=== PATIENT | male | born 1975 | race Caucasian/White ===

== ENCOUNTER 2020-03-24 12:53 | Inpatient (IN) | payer MEDICARE, MEDICAID ==
[~2020-03-24] VITALS: Ht 167.6 cm; Wt 84.5 kg
[2020-03-24 13:43] LABS: BASO # 0.1 x10^3/uL (0.0-0.2); BASO % 1 % (0-3); EOS # 0.1 x10^3/uL (0.0-0.7); EOS % 2 % (0-3); HEMATOCRIT 28.9 % (39.0-53.0); HEMOGLOBIN 9.4 g/dL (13.0-17.5); LYMPH # 0.5 x10^3/uL (1.0-4.8); LYMPH % 6 % (24-48); MEAN CORPUSCULAR HEMOGLOBIN 28 pg (25-35); MEAN CORPUSCULAR HGB CONC 33 g/dL (31-37); MEAN CORPUSCULAR VOLUME 86 fL (79-100); MONO # 0.6 x10^3/uL (0.0-1.1); MONO % 7 % (0-9); NEUT # 6.8 x10^3/uL (1.8-7.7); NEUT % 85 % (31-73); PLATELET COUNT 141 x10^3/uL (140-400); RED BLOOD COUNT 3.37 x10^6/uL (4.30-5.70); RED CELL DISTRIBUTION WIDTH 18.8 % (11.5-14.5)
--- NOTE | 2020-03-24 14:06 | EKG ---
[facility] [address] [place] [address] Test Date: 2020-03-24 Test Time: 12:58:49 Pat Name: SALLY ROPER Department: Room: Gender: M [employer]: : 1975 Requested By: CHARANJIT LANDERS Order Number: [id number] Reading MD: Measurements Intervals [place] Rate: 66 P: -41 [place]: 146 QRS: -43 QRSD: 104 T: 84 QT: 426 QTc: 448 Interpretive Statements SINUS RHYTHM ABNORMAL LEFT AXIS DEVIATION R-S TRANSITION ZONE IN V LEADS DISPLACED TO THE LEFT LEFT ANTERIOR FASCICULAR BLOCK T ABNORMALITY IN HIGH LATERAL LEADS ABNORMAL ECG RI6.02 No previous ECG available for comparison
--- NOTE | 2020-03-24 14:45 | RAD ---
PORTABLE CHEST 1V Clinical indications: Dyspnea. COMPARISON: None available. Findings: Mild bilateral perihilar interstitial pulmonary edema or bronchitis is seen. No Pool B line's or lung consolidation or pleural effusion or pneumothorax is seen. The heart size is enlarged. Mediastinum and pulmonary vasculature are unremarkable. IMPRESSION: Bilateral interstitial pulmonary edema or bronchitis. Cardiomegaly. Electronically signed by: Richard Rangel MD (03/24/2020 2:42 PM) [id number]
[2020-03-24 15:22] LABS: ALBUMIN/GLOBULIN RATIO 0.8 (1.0-1.7); CALCIUM 8.1 mg/dL (8.5-10.1); CREATININE 18.8 mg/dL (0.7-1.3); GFR 2.7; MAGNESIUM 2.4 mg/dL (1.8-2.4); TOTAL BILIRUBIN 0.5 mg/dL (0.2-1.0)
[2020-03-24 15:27] LABS: POTASSIUM 6.9 mmol/L (3.5-5.1)
[2020-03-24] MEDS ORDERED: DEXTROSE 50% 25 GM / 50ML DISP.SYRIN. IV ONE (15:30)
[2020-03-24] MEDS ORDERED: SODIUM BICARB ADULT 8.4% 50 MEQ/50 ML DISP.SYRIN. IV ONE (15:30)
[2020-03-24] MEDS ORDERED: CALCIUM GLUCONATE 1,000 MG/10 ML VIAL. IVP ONE (15:30)
[2020-03-24] MEDS ORDERED: INSULIN REGULAR 100 UNIT/ML 3ML VIAL. IV ONE (15:30)
--- NOTE | 2020-03-24 15:33 | PHYS DOC ---
Past Medical History Past Medical History: Anxiety, Asthma, CHF, COPD, Hypertension, Renal Disease, Renal Failure, Other Additional Past Medical Histor: DIALYSIS M/W/F Past Surgical History: Other Additional Past Surgical Histo: LEFT UPPER EXTREMITY FISTULA Smoking Status: Current Every Day Smoker Alcohol Use: None Drug Use: None General Adult EDM: Chief Complaint: LOWER EXTREMITY SWELLING HPI: HPI: 44-year-old male past medical history significant for ESRD (MWF), asthma, CHF, COPD and hypertension, presents the ED with complaints of progressive/slowly worsening shortness of breath (worse when lying flat) and lower extremity swelling. Patient states he is missed dialysis for the past week. Usually goes to but no longer wants to pursue medical care there. Has no active chest pain/pressure/tightness/tearing sensation. Review of Systems: Review of Systems: Constitutional: Denies fever or chills. [] Eyes: Denies change in visual acuity. [] HENT: Denies nasal congestion or sore throat. [] Respiratory: Denies cough Cardiovascular: Denies chest pain GI: Denies abdominal pain, nausea, vomiting, bloody stools or diarrhea. [] : Denies dysuria, anuria Musculoskeletal: Denies back pain or joint pain. [] Integument: Denies rash. [] Neurologic: Denies headache, focal weakness or sensory changes. [] Endocrine: Denies polyuria or polydipsia. [] Lymphatic: Denies swollen glands. [] Psychiatric: Denies depression or anxiety. [] Heart Score: Risk Factors: Risk Factors: DM, Current or recent (<one month) smoker, HTN, HLP, family history of CAD, obesity. Risk Scores: Score 0 - 3: 2.5% MACE over next 6 weeks - Discharge Home Score 4 - 6: 20.3% MACE over next 6 weeks - Admit for Clinical Observation Score 7 - 10: 72.7% MACE over next 6 weeks - Early Invasive Strategies Current Medications: Current Medications Medications (Trade) Dose Ordered Sig/Michel Start Time Stop Time Status Last Admin Dose Admin Calcium Gluconate (Calcium Gluconate) 1,000 mg 1X ONCE 03/24/20 15:30 03/24/20 15:31 UNV Dextrose (Dextrose 50%-Water Syringe) 25 gm 1X ONCE 03/24/20 15:30 03/24/20 15:31 UNV Insulin Human Regular (HumuLIN R VIAL) 5 unit 1X ONCE 03/24/20 15:30 03/24/20 15:31 UNV Sodium Bicarbonate (Sodium Bicarb Adult 8.4% Syr) 50 meq 1X ONCE 03/24/20 15:30 03/24/20 15:31 UNV Allergies: Allergies: Allergies Coded Allergies Type Severity Reaction Last Updated Verified ibuprofen Allergy Intermediate "Hives" 10/07/15 No Physical Exam: PE: Constitutional: Well developed, well nourished, no acute distress, non-toxic appearance, calm on cell phonr HENT: Normocephalic, atraumatic, bilateral external ears normal, oropharynx moist, no oral exudates, nose normal. [] Eyes: EOMI, conjunctiva normal, no discharge. [] Neck: Normal range of motion, no tenderness, supple, no stridor. [] Cardiovascular:Heart rate regular rhythm, no murmur [] Lungs & Thorax: Bilateral breath sounds clear to auscultation, being in full sentences, no respiratory distress Abdomen: Bowel sounds normal, soft, no tenderness, no masses, no pulsatile masses. [] Skin: Warm, dry, no erythema, no rash. [] Back: No tenderness, Extremities: No tenderness, no cyanosis, no clubbing, ROM intact, +equal bl le edema Neurologic: Alert and oriented X 3, normal motor function, normal sensory function, no focal deficits noted. [] Psychologic: Affect normal, judgement normal, mood normal. [] Current Patient Data: Labs: Laboratory Tests Test 03/24/20 13:22 03/24/20 15:00 White Blood Count 8.0 x10^3/uL (4.0-11.0) Red Blood Count 3.37 x10^6/uL (4.30-5.70) L Hemoglobin 9.4 g/dL (13.0-17.5) L Hematocrit 28.9 % (39.0-53.0) L Mean Corpuscular Volume 86 fL (79-100) Mean Corpuscular Hemoglobin 28 pg (25-35) Mean Corpuscular Hemoglobin Concent 33 g/dL (31-37) Red Cell Distribution Width 18.8 % (11.5-14.5) H Platelet Count 141 x10^3/uL (140-400) Neutrophils (%) (Auto) 85 % (31-73) H Lymphocytes (%) (Auto) 6 % (24-48) L Monocytes (%) (Auto) 7 % (0-9) Eosinophils (%) (Auto) 2 % (0-3) Basophils (%) (Auto) 1 % (0-3) Neutrophils # (Auto) 6.8 x10^3/uL (1.8-7.7) Lymphocytes # (Auto) 0.5 x10^3/uL (1.0-4.8) L Monocytes # (Auto) 0.6 x10^3/uL (0.0-1.1) Eosinophils # (Auto) 0.1 x10^3/uL (0.0-0.7) Basophils # (Auto) 0.1 x10^3/uL (0.0-0.2) Sodium Level 133 mmol/L (136-145) L Potassium Level 6.9 mmol/L (3.5-5.1) *H Chloride Level 96 mmol/L (98-107) L Carbon Dioxide Level 18 mmol/L (21-32) L Anion Gap 19 (6-14) H Blood Urea Nitrogen 128 mg/dL (8-26) H Creatinine 18.8 mg/dL (0.7-1.3) H Estimated GFR (Cockcroft-Gault) 2.7 BUN/Creatinine Ratio 7 (6-20) Glucose Level 108 mg/dL (70-99) H Calcium Level 8.1 mg/dL (8.5-10.1) L Magnesium Level 2.4 mg/dL (1.8-2.4) Total Bilirubin 0.5 mg/dL (0.2-1.0) Aspartate Amino Transferase (AST) 11 U/L (15-37) L Alanine Aminotransferase (ALT) 10 U/L (16-63) L Alkaline Phosphatase 75 U/L (46-116) Creatine Kinase 160 U/L (39-308) Troponin I Quantitative 0.173 ng/mL (0.000-0.055) HP-Cqm-X-Type Natriuretic Peptide > 53358 pg/mL (0-124) H Total Protein 7.0 g/dL (6.4-8.2) Albumin 3.0 g/dL (3.4-5.0) L Albumin/Globulin Ratio 0.8 (1.0-1.7) L Laboratory Tests 03/24/20 13:22 Laboratory Tests 03/24/20 15:00 Vital Signs: Vital Signs Date Time Temp Pulse Resp B/P (MAP) Pulse Ox O2 Delivery O2 Flow Rate FiO2 03/24/20 12:53 98.2 66 22 190/88 (122) 98 Nasal Cannula 2.0 98.2 EKG: EKG: Sinus rhythm at 66 bpm, left axis deviation, QTC 448, T wave inversion aVL, no S T elevations or ST depressions Radiology/Procedures: Radiology/Procedures: []IMAGING REPORT Signed PATIENT: SALLY ROPER ACCOUNT: [id number] : 1975 LOCATION: ER AGE: 44 SEX: M EXAM STATUS: REG ER ORD. PHYSICIAN: MICHELLE LANDERS DO REASON: dyspnea PROCEDURE: PORTABLE CHEST 1V PORTABLE CHEST 1V Clinical indications: Dyspnea. COMPARISON: None available. Findings: Mild bilateral perihilar interstitial pulmonary edema or bronchitis is seen. No Pool B line's or lung consolidation or pleural effusion or pneumothorax is seen. The heart size is enlarged. Mediastinum and pulmonary vasculature are unremarkable. IMPRESSION: Bilateral interstitial pulmonary edema or bronchitis. Cardiomegaly. Electronically signed by: Mateus Rangel MD (03/24/2020 2:42 PM) [id number] DICTATED and SIGNED BY: MATEUS RANGEL MD DATE: 03/24/20 1442 Course & Med Decision Making: Course & Med Decision Making Pertinent Labs and Imaging studies reviewed. (See chart for details) Concern for hyperkalemia in the setting of interstitial pulmonary edema, fluid overload. Treatment started in the ED. Has elevated troponin but no active chest pain, no prior for comparison. Will admit for nephrology and cardiology consultation. Patient stable at time of admission and agrees with this plan. I have spoken with the patient and/or caregivers. I have explained the patient's condition, diagnosis and treatment plan based on the information available to me at this time. I have answered the patient's and/or caregivers questions and answered any concerns. The patient and/or caregivers have as good an understanding of the patient's diagnosis, condition and treatment plan as can be expected at this point. The patient has been stabilized within the capability of the emergency department. The patient will be transported for further care and management or will be moved to an observation or inpatient service. I have communicated with the staff or medical practitioner taking over this patient's care. Critical Care: Authorized and Performed by: Michelle Landers DO Total critical care time: approximately 30 minutes Due to a high probability of clinically significant, life threatening deterioration, the patient required my highest level of preparedness to intervene emergently and I personally spent this critical care time directly and personally managing the patient. This critical care time included obtaining a history; examining the patient; pulse oximetry; ventilator management if necessary; ordering and review of studies; arranging urgent treatment with development of a management plan; evaluation of patient's response to treatment; frequent reassessment; discussion with patient/family; and, discussions with other providers. This critical care time was performed to assess and manage the high probability of imminent, life-threatening deterioration that could result in multi-organ failure. It was exclusive of separately billable procedures and treating other patients and teaching time. Please see MDM section and the rest of the note for further information on patient assessment and treatment. Dragon Disclaimer: Dragon Disclaimer: This electronic medical record was generated, in whole or in part, using a voice recognition dictation system. Departure Departure Impression: Primary Impression: Hyperkalemia Additional Impressions: Cardiomegaly ESRD (end stage renal disease) Fluid overload Elevated troponin Disposition: ADMITTED INPATIENT Admitting Physician: ENRICO Hamilton) Condition: CRITICAL Referrals: NO PCP (PCP) Justicifation of Admission Dx: Justifications for Admission: Justification of Admission Dx: Yes Chronic Renal Failure: Electrolyte Abnormality MICHELLE LANDERS DO Mar 24, 2020 15:33
--- NOTE | 2020-03-24 18:11 | PDOC1 ---
History and Physical Date of Admission Date of Admission DATE: 03/24/20 TIME: 18:10 Identification/Chief Complaint Chief Complaint Leg pain Source Source: Patient History of Present Illness History of Present Illness Mr Barroso is a 44 yo M w/ PMHx ESRD (MWF), asthma, CHF, COPD and hypertension, smoker who presents the ED with complaints of shortness of breath and lower extremity swelling and some left left pain. He notes he missed dialysis for "too long" states his transportation doesn't pick him up. Usually goes to but no longer wants to pursue medical care there. Systolic BP in 200s CXR with fluid overload. Labs significant for WBC 8, Hb 9.4, Platelets 141, Na 133, K 6.9, BUN 128, CR 18.8, glucose 108, Albumin 3, Trop 0.173, BNP > 35K EKG - Sinus rhythm at 66 bpm, left axis deviation, QTC 448, T wave inversion aVL, no ST elevations or ST depressions Given insulin, D50, albuterol, sodium bicarbonate for hyperkalemia, and admitted to ICU for further care. Past Medical History Cardiovascular: CHF, HTN Pulmonary: Asthma, Bronchitis Renal/: Chronic renal insuff Past Surgical History Past Surgical History: Other (LUE fistula) Family History Family History: High Cholestrol, Hypertension Social History Smoke: 1 pack per day ALCOHOL: none Drugs: None Current Problem List Problem List Problems Medical Problems: (1) Cardiomegaly Status: Acute (2) Elevated troponin Status: Acute (3) ESRD (end stage renal disease) Status: Acute (4) Fluid overload Status: Acute (5) Hyperkalemia Status: Acute Current Medications Current Medications Current Medications Calcium Gluconate (Calcium Gluconate) 1,000 mg 1X ONCE IVP Last administered on 03/24/20at 16:16; Start 03/24/20 at 15:30; Stop 03/24/20 at 15:31; Status DC Sodium Bicarbonate (Sodium Bicarb Adult 8.4% Syr) 50 meq 1X ONCE IV Last administered on 03/24/20at 16:10; Start 03/24/20 at 15:30; Stop 03/24/20 at 15:31; Status DC Dextrose (Dextrose 50%-Water Syringe) 25 gm 1X ONCE IV Last administered on 03/24/20at 16:17; Start 03/24/20 at 15:30; Stop 03/24/20 at 15:31; Status DC Insulin Human Regular (HumuLIN R VIAL) 5 unit 1X ONCE IV Last administered on 03/24/20at 16:24; Start 03/24/20 at 15:30; Stop 03/24/20 at 15:31; Status DC Allergies Allergies: Coded Allergies: ibuprofen (Unverified Allergy, Intermediate, "Hives", 10/07/15) "Hives" ROS General: YES: Fatigue, Malaise; No: Chills, Night Sweats, Appetite, Other PSYCHOLOGICAL ROS: YES: Anxiety; No: Behavioral Disorder, Concentration difficultie, Decreased libido, Depression, Disorientation, Hallucinations, Hostility, Irritablity, Memory difficulties, Mood Swings, Obsessive thoughts, Physical abuse, Sexual abuse, Sleep disturbances, Suicidal ideation, Other Eyes: No Blurry vision, No Decreased vision, No Double vision, No Dry eyes, No Excessive tearing, No Eye Pain, No Itchy Eyes, No Loss of vision, No Photophobia, No Scotomata, No Uses contacts, No Uses glasses, No Other HEENT: No: Heacaches, Visual Changes, Hearing change, Nasal congestion, Nasal discharge, Oral lesions, Sinus pain, Sore Throat, Epistaxis, Sneezing, Snoring, Tinnitus, Vertigo, Vocal changes, Other ALLERGY AND IMMUNOLOGY: No: Hives, Insect Bite Sensitivity, Itchy/Watery Eyes, Nasal Congestion, Post Nasal Drip, Seasonal Allergies, Other Hematological and Lymphatic: No: Bleeding Problems, Blood Clots, Blood Transfusions, Brusing, Night Sweats, Pallor, Swollen Lymph Nodes, Other ENDOCRINE: No: Breast Changes, Galactorrhea, Hair Pattern Changes, Hot Flashes, Malaise/lethargy, Mood Swings, Palpitations, Polydipsia/polyuria, Skin Changes, Temperature Intolerance, Unexpected Weight Changes, Other Breast: No New/Changing Breast Lumps, No Nipple changes, No Nipple discharge, No Other Respiratory: YES: Shortness of breath; No: Cough, Hemoptysis, Orthopnea, Pleuritic Pain, SOB with excertion, Sputum Changes, Stridor, Tachypnea, Wheezing, Other Cardiovascular: yes Orthopnea, yes Paroxysmal Noc. Dyspnea, yes Edema Gastrointestinal: Yes Nausea; No Vomiting, No Abdominal Pain, No Diarrhea, No Constipation, No Melena, No Hematochezia, No Other Genitourinary: No Dysuria, No Frequency, No Incontinence, No Hematuria, No Retention, No Discharge, No Urgency, No Pain, No Flank Pain, No Other, No , No , No , No , No , No , No Musculoskeletal: Yes Gait Disturbance; No Joint Pain, No Joint Stiffness, No Joint Swelling, No Muscle Pain, No Muscular Weakness, No Pain In:, No Swelling In:, No Other Neurological: No Behavorial Changes, No Bowel/Bladder ControlChng, No Confusion , No Dizziness, No Gait Disturbance, No Headaches, No Impaired Coord/balance, No Memory Loss, No Numbness/Tingling, No Seizures, No Speech Problems, No Tremors, No Visual Changes, No Weakness, No Other Skin: No Dry Skin, No Eczema, No Hair Changes, No Lumps, No Mole Changes, No Mottling, No Nail Changes, No Pruritus, No Rash, No Skin Lesion Changes, No Other, No Acne Physical Exam General: Alert, Cooperative, mild distress HEENT: Atraumatic, PERRLA, EOMI, Mucous membr. moist/pink Lungs: Other (Bibasilar crackles) Heart: S1S2, RRR, no thrills, no rubs, no gallops, no murmurs Abdomen: Normal bowel sounds, Soft, No tenderness, No hepatosplenomegaly, No masses Rectal Exam: not examined Extremities: No clubbing, No cyanosis, No edema, Normal pulses Skin: No breakdown, No significant lesion, Other (left leg calf pain) Neuro: Normal speech, Strength at 5/5 X4 ext, Normal tone, Sensation intact, Cranial nerves 3-12 NL, Reflexes 2+ Psych/Mental Status: Other (Confused) Vitals Vitals Vital Signs Date Time Temp Pulse Resp B/P (MAP) Pulse Ox O2 Delivery O2 Flow Rate FiO2 03/24/20 12:53 98.2 66 22 190/88 (122) 98 Nasal Cannula 2.0 98.2 Labs Labs Laboratory Tests Test 03/24/20 13:22 03/24/20 15:00 White Blood Count 8.0 x10^3/uL (4.0-11.0) Red Blood Count 3.37 x10^6/uL (4.30-5.70) Hemoglobin 9.4 g/dL (13.0-17.5) Hematocrit 28.9 % (39.0-53.0) Mean Corpuscular Volume 86 fL (79-100) Mean Corpuscular Hemoglobin 28 pg (25-35) Mean Corpuscular Hemoglobin Concent 33 g/dL (31-37) Red Cell Distribution Width 18.8 % (11.5-14.5) Platelet Count 141 x10^3/uL (140-400) Neutrophils (%) (Auto) 85 % (31-73) Lymphocytes (%) (Auto) 6 % (24-48) Monocytes (%) (Auto) 7 % (0-9) Eosinophils (%) (Auto) 2 % (0-3) Basophils (%) (Auto) 1 % (0-3) Neutrophils # (Auto) 6.8 x10^3/uL (1.8-7.7) Lymphocytes # (Auto) 0.5 x10^3/uL (1.0-4.8) Monocytes # (Auto) 0.6 x10^3/uL (0.0-1.1) Eosinophils # (Auto) 0.1 x10^3/uL (0.0-0.7) Basophils # (Auto) 0.1 x10^3/uL (0.0-0.2) Sodium Level 133 mmol/L (136-145) Potassium Level 6.9 mmol/L (3.5-5.1) Chloride Level 96 mmol/L (98-107) Carbon Dioxide Level 18 mmol/L (21-32) Anion Gap 19 (6-14) Blood Urea Nitrogen 128 mg/dL (8-26) Creatinine 18.8 mg/dL (0.7-1.3) Estimated GFR (Cockcroft-Gault) 2.7 BUN/Creatinine Ratio 7 (6-20) Glucose Level 108 mg/dL (70-99) Calcium Level 8.1 mg/dL (8.5-10.1) Magnesium Level 2.4 mg/dL (1.8-2.4) Total Bilirubin 0.5 mg/dL (0.2-1.0) Aspartate Amino Transf (AST/SGOT) 11 U/L (15-37) Alanine Aminotransferase (ALT/SGPT) 10 U/L (16-63) Alkaline Phosphatase 75 U/L (46-116) Creatine Kinase 160 U/L (39-308) Troponin I Quantitative 0.173 ng/mL (0.000-0.055) MR-Jpo-Q-Type Natriuretic Peptide > 74847 pg/mL (0-124) Total Protein 7.0 g/dL (6.4-8.2) Albumin 3.0 g/dL (3.4-5.0) Albumin/Globulin Ratio 0.8 (1.0-1.7) Laboratory Tests Test 03/24/20 13:22 03/24/20 15:00 White Blood Count 8.0 x10^3/uL (4.0-11.0) Red Blood Count 3.37 x10^6/uL (4.30-5.70) Hemoglobin 9.4 g/dL (13.0-17.5) Hematocrit 28.9 % (39.0-53.0) Mean Corpuscular Volume 86 fL (79-100) Mean Corpuscular Hemoglobin 28 pg (25-35) Mean Corpuscular Hemoglobin Concent 33 g/dL (31-37) Red Cell Distribution Width 18.8 % (11.5-14.5) Platelet Count 141 x10^3/uL (140-400) Neutrophils (%) (Auto) 85 % (31-73) Lymphocytes (%) (Auto) 6 % (24-48) Monocytes (%) (Auto) 7 % (0-9) Eosinophils (%) (Auto) 2 % (0-3) Basophils (%) (Auto) 1 % (0-3) Neutrophils # (Auto) 6.8 x10^3/uL (1.8-7.7) Lymphocytes # (Auto) 0.5 x10^3/uL (1.0-4.8) Monocytes # (Auto) 0.6 x10^3/uL (0.0-1.1) Eosinophils # (Auto) 0.1 x10^3/uL (0.0-0.7) Basophils # (Auto) 0.1 x10^3/uL (0.0-0.2) Sodium Level 133 mmol/L (136-145) Potassium Level 6.9 mmol/L (3.5-5.1) Chloride Level 96 mmol/L (98-107) Carbon Dioxide Level 18 mmol/L (21-32) Anion Gap 19 (6-14) Blood Urea Nitrogen 128 mg/dL (8-26) Creatinine 18.8 mg/dL (0.7-1.3) Estimated GFR (Cockcroft-Gault) 2.7 BUN/Creatinine Ratio 7 (6-20) Glucose Level 108 mg/dL (70-99) Calcium Level 8.1 mg/dL (8.5-10.1) Magnesium Level 2.4 mg/dL (1.8-2.4) Total Bilirubin 0.5 mg/dL (0.2-1.0) Aspartate Amino Transf (AST/SGOT) 11 U/L (15-37) Alanine Aminotransferase (ALT/SGPT) 10 U/L (16-63) Alkaline Phosphatase 75 U/L (46-116) Creatine Kinase 160 U/L (39-308) Troponin I Quantitative 0.173 ng/mL (0.000-0.055) RI-Eaf-V-Type Natriuretic Peptide > 38360 pg/mL (0-124) Total Protein 7.0 g/dL (6.4-8.2) Albumin 3.0 g/dL (3.4-5.0) Albumin/Globulin Ratio 0.8 (1.0-1.7) Images Images CXR: Mild bilateral perihilar interstitial pulmonary edema or bronchitis is seen. No Pool B line's or lung consolidation or pleural effusion or pneumothorax is seen. The heart size is enlarged. Mediastinum and pulmonary vasculature are unremarkable. IMPRESSION: Bilateral interstitial pulmonary edema or bronchitis. Cardiomegaly. VTE Prophylaxis Ordered VTE Prophylaxis Devices: No VTE Pharmacological Prophylaxi: Yes Assessment/Plan Assessment/Plan A/P: Shortness of breath - due to fluid overload from missed dialysis, will need UF. Nebs for asthma Acute metabolic encephalopathy - likely uremic, will need dialysis Hyperkalemia - will cont on bicarbonate, needs dialysis. 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 nebs Hypertensive urgency - IV labetalol, restart home meds Smoker - counseled on cessation Elevated troponin - likely demand ischemia from above, will trend FEN- Renal diet PPX - heparin FULL CODE Dispo - inpatient for life-threatening hyperkalemia Justifications for Admission Other Justification JABIER ALLEN MD Mar 24, 2020 18:11
[2020-03-24] MEDS ORDERED: fentaNYL PF VIAL 100 MCG/2 ML VIAL IVP PRN (19:45)
[2020-03-24 21:00] VITALS: BP 187/93
[2020-03-24] MEDS ORDERED: ROPI0.5T4 PO (21:10)
[2020-03-24] MEDS ORDERED: B,C/1TAB PO (21:10)
[2020-03-24] MEDS ORDERED: SEVE800T8 PO (21:10)
--- NOTE | 2020-03-24 21:34 | RAD ---
EXAM: Bilateral lower extremity venous Doppler. HISTORY: Bilateral lower extremity pain/swelling. COMPARISON: None. FINDINGS: Grayscale and Doppler analysis of the both lower extremity deep venous systems was performed with graded compression and augmentation. The common femoral, greater saphenous, superficial femoral, popliteal and calf veins were assessed. There is no evidence of deep venous thrombosis. Subcutaneous edema is noted. Left inguinal lymph nodes have prominent cortices and measure up to 2.3 x 1 1.6 cm. IMPRESSION: 1. No evidence of deep venous thrombosis. 2. Prominent left inguinal lymph nodes. Correlate for regional inflammation. Electronically signed by: Temo Smith MD (03/24/2020 9:31 PM) [facility]
[2020-03-24] MEDS ORDERED: IV NORMAL SALINE 1000ML BAG 1,000 ML IV PRN ×2 (21:38)
[2020-03-24] MEDS ORDERED: ALBUMIN HUMAN 25% 200 ML IV PRN (21:45)
[2020-03-24] MEDS ORDERED: DIALYSIS PATIENT. MC PRN ×2 (21:45)
[2020-03-24] MEDS ORDERED: ONDANSETRON PF 4 MG/2 ML VIAL. IV PRN (22:30)
[2020-03-24] MEDS ORDERED: ALBUTEROL SULFATE 2.5 MG/3 ML NEBU. NEB PRN (22:45)
[2020-03-24 23:00] VITALS: BP 190/102
[2020-03-24] MEDS: LABETALOL 20 MG/4 ML DISP.SYRIN. IVP PRN (23:45)
[2020-03-25 03:00] VITALS: BP 139/74
[2020-03-25 05:45] LABS: BASO # 0.1 x10^3/uL (0.0-0.2); BASO % 1 % (0-3); EOS # 0.2 x10^3/uL (0.0-0.7); EOS % 2 % (0-3); HEMATOCRIT 26.2 % (39.0-53.0); HEMOGLOBIN 8.7 g/dL (13.0-17.5); LYMPH # 0.4 x10^3/uL (1.0-4.8); LYMPH % 5 % (24-48); MEAN CORPUSCULAR HEMOGLOBIN 28 pg (25-35); MEAN CORPUSCULAR HGB CONC 33 g/dL (31-37); MEAN CORPUSCULAR VOLUME 85 fL (79-100); MONO % 11 % (0-9); NEUT # 7.5 x10^3/uL (1.8-7.7); NEUT % 81 % (31-73); PLATELET COUNT 139 x10^3/uL (140-400); RED CELL DISTRIBUTION WIDTH 18.9 % (11.5-14.5); WHITE BLOOD COUNT 9.3 x10^3/uL (4.0-11.0)
[2020-03-25 05:58] LABS: CREATININE 12.4 mg/dL (0.7-1.3); GFR 4.4; POTASSIUM 4.7 mmol/L (3.5-5.1)
[2020-03-25] MEDS: HEPARIN for SUB-Q USE 5,000 UNIT/ML VIAL. SQ SCH ×3 (06:00→20:50)
[2020-03-25 07:00] VITALS: BP 146/74
[2020-03-25] MEDS: ACETAMINOPHEN 325 MG TABLET. PO PRN ×2 (07:47→19:22)
[2020-03-25] MEDS: SEVELAMER CARBONATE 800 MG TABLET. PO SCH ×3 (07:47→20:51)
--- NOTE | 2020-03-25 08:38 | PDOC ---
[employer] PROGRESS NOTE Date of Service DOS: DATE: 03/25/20 TIME: 08:37 Chief Complaint Chief Complaint A/P: Shortness of breath - due to fluid overload from missed dialysis, will need UF. Nebs for asthma Acute metabolic encephalopathy - likely uremic, will need dialysis Hyperkalemia - will cont on bicarbonate, needs dialysis. Nephrology consulted Left leg pain and swelling - venous doppler ordered to r/o DVT ESRD (MWF) - social media campaign manager to assist with transportation to dialysis Asthma with COPD - counseled on smoking cessation. nebs Hypertensive urgency - IV labetalol, restart home meds Smoker - counseled on cessation Elevated troponin - likely demand ischemia from above, will trend FEN- Renal diet PPX - heparin FULL CODE Dispo - inpatient for life-threatening hyperkalemia History of Present Illness History of Present Illness Mr Barroso is a 44 yo M w/ PMHx ESRD (MWF), asthma, CHF, COPD and hypertension, smoker who presents the ED with complaints of shortness of breath and lower extremity swelling and some left left pain. He notes he missed dialysis for "too long" states his transportation doesn't pick him up. Usually goes to but no longer wants to pursue medical care there. Systolic BP in 200s CXR with fluid overload. Labs significant for WBC 8, Hb 9.4, Platelets 141, Na 133, K 6.9, BUN 128, CR 18.8, glucose 108, Albumin 3, Trop 0.173, BNP > 35K EKG - Sinus rhythm at 66 bpm, left axis deviation, QTC 448, T wave inversion aVL, no ST elevations or ST depressions Given insulin, D50, albuterol, sodium bicarbonate for hyperkalemia, and admitted to ICU for further care. BP improved slightly, however, requiring cardene GTT. labs improved with K4.7, BUN 79, CR 12.44 Phos 11.8. Still c/o bilateral LE pain. US negative for DVT, no groin lesions, he is not sexually active. Still very edematous likely from fluid overload. Vitals/I&O Vitals/I&O: Vital Signs Date Time Temp Pulse Resp B/P (MAP) Pulse Ox O2 Delivery O2 Flow Rate FiO2 03/25/20 08:28 97 Nasal Cannula 2.0 03/25/20 03:00 98.4 78 18 139/74 (95) 98.4 I & O 9/17/20 9/17/20 9/18/20 15:00 23:00 07:00 Intake Total 0 ml 350 ml Output Total 0 ml Balance 0 ml 350 ml Physical Exam General: Alert, Cooperative, mild distress Abdomen: Normal bowel sounds, Soft, No tenderness, No hepatosplenomegaly, No masses Extremities: No clubbing, No cyanosis, No edema, Normal pulses Skin: No breakdown, No significant lesion, Other (left leg calf pain) Labs Labs: Laboratory Tests Test 03/24/20 13:22 03/24/20 15:00 03/24/20 22:45 03/25/20 05:00 White Blood Count 8.0 x10^3/uL (4.0-11.0) 9.3 x10^3/uL (4.0-11.0) Red Blood Count 3.37 x10^6/uL (4.30-5.70) 3.10 x10^6/uL (4.30-5.70) Hemoglobin 9.4 g/dL (13.0-17.5) 8.7 g/dL (13.0-17.5) Hematocrit 28.9 % (39.0-53.0) 26.2 % (39.0-53.0) Mean Corpuscular Volume 86 fL (79-100) 85 fL (79-100) Mean Corpuscular Hemoglobin 28 pg (25-35) 28 pg (25-35) Mean Corpuscular Hemoglobin Concent 33 g/dL (31-37) 33 g/dL (31-37) Red Cell Distribution Width 18.8 % (11.5-14.5) 18.9 % (11.5-14.5) Platelet Count 141 x10^3/uL (140-400) 139 x10^3/uL (140-400) Neutrophils (%) (Auto) 85 % (31-73) 81 % (31-73) Lymphocytes (%) (Auto) 6 % (24-48) 5 % (24-48) Monocytes (%) (Auto) 7 % (0-9) 11 % (0-9) Eosinophils (%) (Auto) 2 % (0-3) 2 % (0-3) Basophils (%) (Auto) 1 % (0-3) 1 % (0-3) Neutrophils # (Auto) 6.8 x10^3/uL (1.8-7.7) 7.5 x10^3/uL (1.8-7.7) Lymphocytes # (Auto) 0.5 x10^3/uL (1.0-4.8) 0.4 x10^3/uL (1.0-4.8) Monocytes # (Auto) 0.6 x10^3/uL (0.0-1.1) 1.0 x10^3/uL (0.0-1.1) Eosinophils # (Auto) 0.1 x10^3/uL (0.0-0.7) 0.2 x10^3/uL (0.0-0.7) Basophils # (Auto) 0.1 x10^3/uL (0.0-0.2) 0.1 x10^3/uL (0.0-0.2) Sodium Level 133 mmol/L (136-145) 137 mmol/L (136-145) Potassium Level 6.9 mmol/L (3.5-5.1) 4.7 mmol/L (3.5-5.1) Chloride Level 96 mmol/L (98-107) 97 mmol/L (98-107) Carbon Dioxide Level 18 mmol/L (21-32) 26 mmol/L (21-32) Anion Gap 19 (6-14) 14 (6-14) Blood Urea Nitrogen 128 mg/dL (8-26) 74 mg/dL (8-26) Creatinine 18.8 mg/dL (0.7-1.3) 12.4 mg/dL (0.7-1.3) Estimated GFR (Cockcroft-Gault) 2.7 4.4 BUN/Creatinine Ratio 7 (6-20) Glucose Level 108 mg/dL (70-99) 106 mg/dL (70-99) Calcium Level 8.1 mg/dL (8.5-10.1) 8.0 mg/dL (8.5-10.1) Magnesium Level 2.4 mg/dL (1.8-2.4) Total Bilirubin 0.5 mg/dL (0.2-1.0) Aspartate Amino Transf (AST/SGOT) 11 U/L (15-37) Alanine Aminotransferase (ALT/SGPT) 10 U/L (16-63) Alkaline Phosphatase 75 U/L (46-116) Creatine Kinase 160 U/L (39-308) Troponin I Quantitative 0.173 ng/mL (0.000-0.055) UQ-Cdi-C-Type Natriuretic Peptide > 47616 pg/mL (0-124) Total Protein 7.0 g/dL (6.4-8.2) Albumin 3.0 g/dL (3.4-5.0) Albumin/Globulin Ratio 0.8 (1.0-1.7) Phosphorus Level 11.8 mg/dL (2.6-4.7) 25-Hydroxy Vitamin D Total 31.3 ng/mL (30-100) Hepatitis B Surface Antigen Nonreactive (Nonreactive) Hepatitis B Surface Antibody Reactive Assessment and Plan Assessmemt and Plan Problems Medical Problems: (1) Cardiomegaly Status: Acute (2) Elevated troponin Status: Acute (3) ESRD (end stage renal disease) Status: Acute (4) Fluid overload Status: Acute (5) Hyperkalemia Status: Acute Comment Review of Relevant I have reviewed the following items [place] (where applicable) has been applied. Medications: Current Medications Medications (Trade) Dose Ordered Sig/Michel Route PRN Reason Start Time Stop Time Status Last Admin Dose Admin Calcium Gluconate (Calcium Gluconate) 1,000 mg 1X ONCE IVP 03/24/20 15:30 03/24/20 15:31 DC 03/24/20 16:16 Sodium Bicarbonate (Sodium Bicarb Adult 8.4% Syr) 50 meq 1X ONCE IV 03/24/20 15:30 03/24/20 15:31 DC 03/24/20 16:10 Dextrose (Dextrose 50%-Water Syringe) 25 gm 1X ONCE IV 03/24/20 15:30 03/24/20 15:31 DC 03/24/20 16:17 Insulin Human Regular (HumuLIN R VIAL) 5 unit 1X ONCE IV 03/24/20 15:30 03/24/20 15:31 DC 03/24/20 16:24 Sevelamer Carbonate (Renvela) 3,200 mg TIDAC PO 03/25/20 07:30 03/25/20 07:47 Labetalol HCl (Normodyne Iv Push) 10 mg PRN Q2HR PRN IVP HYPERTENSION 03/24/20 22:30 03/24/20 23:45 Acetaminophen (Tylenol) 650 mg PRN Q4HRS PRN PO TEMP OVER 100.4F OR MILD PAIN 03/24/20 22:30 03/25/20 07:47 Albuterol Sulfate (Ventolin Neb Soln) 2.5 mg PRN Q4HRS PRN NEB SHORTNESS OF BREATH 03/24/20 22:45 03/25/20 08:28 Nicardipine HCl 50 mg/Sodium Chloride 250 ml @ 25 mls/hr CONT PRN IV SEE I/O RECORD 03/25/20 01:15 03/25/20 08:27 Justifications for Admission Other Justification JABIER ALLEN MD Mar 25, 2020 08:38
[2020-03-25] MEDS: PRENATAL MULTIVITAMIN TABLET. PO SCH (09:16)
[2020-03-25 10:17] LABS: % BASOS 1 % (0-3); % EOS 1 % (0-5); % LYMPHS 3 % (24-48); % MONOS 4 % (0-10); % SEGS 91 % (35-66)
[2020-03-25 10:20] LABS: ANISOCYTOSIS PRESENT; PLT ESTIMATE DECREASED (ADEQUATE)
--- NOTE | 2020-03-25 10:35 | PDOC2 ---
HEIDY QUESADA HEALTH PHYSICIST 03/25/20 1035: CARDIAC CONSULT DATE OF CONSULT Date of Consult DATE: 03/25/20 TIME: 10:28 REASON FOR CONSULT Reason for Consult: Elevated troponin REFERRING PHYSICIAN Referring Physician: [facility] SOURCE Source: Chart review, Patient HISTORY OF PRESENT ILLNESS HISTORY OF PRESENT ILLNESS This is a pleasant 44 yo male admitted for complains of shortness of breath and leg swelling. Reports that he has been missing his HD due to transport issues. He was just recently discharged from [facility] and was there early march due to missed HD. Reports of some nausea but no complains of palpitations or chest pain. Denies any CAD, VTE. No recent falls or injury although his mobility is limited. His leg swelling has moved up to his abdominal region. He also has been referred to a oil plant operator as well. PAST MEDICAL HISTORY Psych: Bipolar Renal/: Chronic renal failure PAST SURGICAL HISTORY Past Surgical History: Other (LA AV HD fistula) FAMILY HISTORY Family History: Coronary Artery Disease (mother) SOCIAL HISTORY Smoke: <1 pack per day ALCOHOL: none Drugs: None Lives: Alone CURRENT MEDICATIONS CURRENT MEDICATIONS Current Medications Medications (Trade) Dose Ordered Sig/Michel Route PRN Reason Start Time Stop Time Status Last Admin Dose Admin Calcium Gluconate (Calcium Gluconate) 1,000 mg 1X ONCE IVP 03/24/20 15:30 03/24/20 15:31 DC 03/24/20 16:16 Sodium Bicarbonate (Sodium Bicarb Adult 8.4% Syr) 50 meq 1X ONCE IV 03/24/20 15:30 03/24/20 15:31 DC 03/24/20 16:10 Dextrose (Dextrose 50%-Water Syringe) 25 gm 1X ONCE IV 03/24/20 15:30 03/24/20 15:31 DC 03/24/20 16:17 Insulin Human Regular (HumuLIN R VIAL) 5 unit 1X ONCE IV 03/24/20 15:30 03/24/20 15:31 DC 03/24/20 16:24 Multivit/ Folic Acid/Iron (Multivitamin ) 1 tab DAILY PO 03/25/20 09:00 03/25/20 09:16 Sevelamer Carbonate (Renvela) 3,200 mg TIDAC PO 03/25/20 07:30 03/25/20 07:47 Labetalol HCl (Normodyne Iv Push) 10 mg PRN Q2HR PRN IVP HYPERTENSION 03/24/20 22:30 03/24/20 23:45 Acetaminophen (Tylenol) 650 mg PRN Q4HRS PRN PO TEMP OVER 100.4F OR MILD PAIN 03/24/20 22:30 03/25/20 07:47 Albuterol Sulfate (Ventolin Neb Soln) 2.5 mg PRN Q4HRS PRN NEB SHORTNESS OF BREATH 03/24/20 22:45 03/25/20 08:28 Nicardipine HCl 50 mg/Sodium Chloride 250 ml @ 25 mls/hr CONT PRN IV SEE I/O RECORD 03/25/20 01:15 03/25/20 08:27 ALLERGIES ALLERGIES: Coded Allergies: ibuprofen (Verified Allergy, Intermediate, "Hives", 03/25/20) "Hives" ROS Review of System 14 point ROS evaluated with pertinent positives noted per HPI PHYSICAL EXAM General: Alert, Oriented X3, Cooperative, No acute distress HEENT: Atraumatic, Mucous membr. moist/pink Lungs: Other (diminished bases) Heart: Regular rate (SR) Abdomen: Soft, Other (anasarca) Extremities: Other (anasarca) Skin: No breakdown, No significant lesion Neuro: Normal speech, Sensation intact Psych/Mental Status: Mental status NL, Mood NL MUSCULOSKELETAL: Osteoarthritic changes both hands VITALS/I&O VITALS/I&O: Vital Signs Date Time Temp Pulse Resp B/P (MAP) Pulse Ox O2 Delivery O2 Flow Rate FiO2 03/25/20 08:28 97 Nasal Cannula 2.0 03/25/20 07:00 98.4 78 22 146/74 (98) 98.4 I & O 03/24/20 03/24/20 03/25/20 15:00 23:00 07:00 Intake Total 0 ml 350 ml Output Total 0 ml Balance 0 ml 350 ml LABS Lab: Laboratory Tests Test 03/24/20 13:22 03/24/20 15:00 03/24/20 22:45 03/25/20 05:00 White Blood Count 8.0 x10^3/uL (4.0-11.0) 9.3 x10^3/uL (4.0-11.0) Red Blood Count 3.37 x10^6/uL (4.30-5.70) L 3.10 x10^6/uL (4.30-5.70) L Hemoglobin 9.4 g/dL (13.0-17.5) L 8.7 g/dL (13.0-17.5) L Hematocrit 28.9 % (39.0-53.0) L 26.2 % (39.0-53.0) L Mean Corpuscular Volume 86 fL (79-100) 85 fL (79-100) Mean Corpuscular Hemoglobin 28 pg (25-35) 28 pg (25-35) Mean Corpuscular Hemoglobin Concent 33 g/dL (31-37) 33 g/dL (31-37) Red Cell Distribution Width 18.8 % (11.5-14.5) H 18.9 % (11.5-14.5) H Platelet Count 141 x10^3/uL (140-400) 139 x10^3/uL (140-400) L Neutrophils (%) (Auto) 85 % (31-73) H 81 % (31-73) H Lymphocytes (%) (Auto) 6 % (24-48) L 5 % (24-48) L Monocytes (%) (Auto) 7 % (0-9) 11 % (0-9) H Eosinophils (%) (Auto) 2 % (0-3) 2 % (0-3) Basophils (%) (Auto) 1 % (0-3) 1 % (0-3) Neutrophils # (Auto) 6.8 x10^3/uL (1.8-7.7) 7.5 x10^3/uL (1.8-7.7) Lymphocytes # (Auto) 0.5 x10^3/uL (1.0-4.8) L 0.4 x10^3/uL (1.0-4.8) L Monocytes # (Auto) 0.6 x10^3/uL (0.0-1.1) 1.0 x10^3/uL (0.0-1.1) Eosinophils # (Auto) 0.1 x10^3/uL (0.0-0.7) 0.2 x10^3/uL (0.0-0.7) Basophils # (Auto) 0.1 x10^3/uL (0.0-0.2) 0.1 x10^3/uL (0.0-0.2) Sodium Level 133 mmol/L (136-145) L 137 mmol/L (136-145) Potassium Level 6.9 mmol/L (3.5-5.1) *H 4.7 mmol/L (3.5-5.1) # Chloride Level 96 mmol/L (98-107) L 97 mmol/L (98-107) L Carbon Dioxide Level 18 mmol/L (21-32) L 26 mmol/L (21-32) Anion Gap 19 (6-14) H 14 (6-14) Blood Urea Nitrogen 128 mg/dL (8-26) H 74 mg/dL (8-26) H Creatinine 18.8 mg/dL (0.7-1.3) H 12.4 mg/dL (0.7-1.3) H Estimated GFR (Cockcroft-Gault) 2.7 4.4 BUN/Creatinine Ratio 7 (6-20) Glucose Level 108 mg/dL (70-99) H 106 mg/dL (70-99) H Calcium Level 8.1 mg/dL (8.5-10.1) L 8.0 mg/dL (8.5-10.1) L Magnesium Level 2.4 mg/dL (1.8-2.4) Total Bilirubin 0.5 mg/dL (0.2-1.0) Aspartate Amino Transferase (AST) 11 U/L (15-37) L Alanine Aminotransferase (ALT) 10 U/L (16-63) L Alkaline Phosphatase 75 U/L (46-116) Creatine Kinase 160 U/L (39-308) Troponin I Quantitative 0.173 ng/mL (0.000-0.055) [id number]-[id number]-Type Natriuretic Peptide > 91681 pg/mL (0-124) H Total Protein 7.0 g/dL (6.4-8.2) Albumin 3.0 g/dL (3.4-5.0) L Albumin/Globulin Ratio 0.8 (1.0-1.7) L Phosphorus Level 11.8 mg/dL (2.6-4.7) H 25-Hydroxy Vitamin D Total 31.3 ng/mL (30-100) Hepatitis B Surface Antigen Nonreactive (Nonreactive) Hepatitis B Surface Antibody Reactive Segmented Neutrophils % 91 % (35-66) H Lymphocytes % 3 % (24-48) L Monocytes % 4 % (0-10) Eosinophils % 1 % (0-5) Basophils % 1 % (0-3) Platelet Estimate Decreased (ADEQUATE) Anisocytosis Present Laboratory Tests 03/24/20 13:22 03/25/20 05:00 Laboratory Tests 03/24/20 15:00 03/25/20 05:00 ASSESSMENT/PLAN ASSESSMENT/PLAN 1. Acute on chronic diastolic CHF: due to missed HD 2. ESRD with hyperkalemia: has been missing HD days due to transportation problem 3. HTN urgency 4. Mild troponin elevation: due above culprits, demand mediated. No CP no acute EKG changes 5. suspect COPD with tobaccoism 6. Noncompliance: multiple missed HD due transportation issues 7. Murmur: 8. Obesity Recommendations 1. TTE TSH, lipids 2. Not on home ASA. Will place on statin per level. 3. Titrate off cardene. Restart home coreg and norvasc. Hydralazine IV PRN 4. Reported referral to cardiology and if none then could follow up in office. Recommend outpt stress test. 5. Fluid offloading per HD. Consult SS regarding transport LORI BEVERLY MD 03/25/20 1525: CARDIAC CONSULT ASSESSMENT/PLAN ASSESSMENT/PLAN The patient was seen and interviewed as well as examined at the bedside. The chart was reviewed. The case was discussed. Agree with the plan of care. HEIDY QUESADA APRN Mar 25, 2020 10:35 LORI BEVERLY MD Mar 25, 2020 15:25
[2020-03-25 10:57] LABS: CHOLESTEROL/HDL RATIO 4.6
[2020-03-25 11:00] VITALS: BP 147/83
[2020-03-25] MEDS ORDERED: hydrALAZINE 20 MG/ML VIAL. IVP PRN (11:00)
[2020-03-25] MEDS ORDERED: LURA120T PO (11:02)
[2020-03-25] MEDS ORDERED: PARO20TA3 PO (11:02)
[2020-03-25] MEDS ORDERED: ROPI0.5T4 PO (11:02)
[2020-03-25] MEDS ORDERED: TRAZ-123 PO (11:02)
[2020-03-25] MEDS ORDERED: CARV25TA2 PO (11:02)
[2020-03-25] MEDS ORDERED: HYDR25TA PO (11:02)
[2020-03-25] MEDS ORDERED: PRAZ2CAP2 PO (11:02)
[2020-03-25] MEDS ORDERED: AMLO10TA8 PO (11:02)
--- NOTE | 2020-03-25 11:51 | PDOC2 ---
CONSULT Date of Consult Date of Consult DATE: 03/25/20 TIME: 11:44 Reason for Consult Reason for Consult: HIGH K, SOB AND ESRD Referring Physician Referring Physician: ALEJANDRO Identification/Chief Complaint Chief Complaint SOB Source Source: Chart review, Patient History of Present Illness Reason for Visit: THIS IS A 44 YR OLD PT WITH ESRD FOR ABOUT 5 YEARS. HAS BEEN ON HD AND HAS A LEFT ARM AVF. HAS MISSED HIS HD FOR ABOUT 5 DAYS. STATES HE MISSES ONLY DUE TO TRANSPORTATION ISSUES. ADMITTED WITH SOB AND LE EDEMA. ALSO NOTED TO HAVE HYPERKALEMIA AND ANEMIA AND LABS ARE C/W HIS ESRD. ESRD IS DUE TO HTN. SEES RENAL AT [facility] AND HAS HIS HD AT [facility]. VERY HYPERTENSIVE AND PULMONARY VASCULAR CONGESTION NOTED ON ADMIT. Past Medical History Cardiovascular: CHF, HTN Pulmonary: Asthma, Bronchitis GI: Constipation Heme/Onc: Anemia NOS Psych: Bipolar Renal/: Chronic renal failure Endocrine: Hyperparathyroidism Past Surgical History Past Surgical History: Other (LA AV HD fistula) Family History Family History: Coronary Artery Disease (mother) Social History <1 pack per day ALCOHOL: none Drugs: None Lives: Alone Current Problem List Problem List Problems Medical Problems: (1) Cardiomegaly Status: Acute (2) Elevated troponin Status: Acute (3) ESRD (end stage renal disease) Status: Acute (4) Fluid overload Status: Acute (5) Hyperkalemia Status: Acute Current Medications Current Medications Current Medications Calcium Gluconate (Calcium Gluconate) 1,000 mg 1X ONCE IVP Last administered on 03/24/20at 16:16; Start 03/24/20 at 15:30; Stop 03/24/20 at 15:31; Status DC Sodium Bicarbonate (Sodium Bicarb Adult 8.4% Syr) 50 meq 1X ONCE IV Last administered on 03/24/20at 16:10; Start 03/24/20 at 15:30; Stop 03/24/20 at 15:31; Status DC Dextrose (Dextrose 50%-Water Syringe) 25 gm 1X ONCE IV Last administered on 03/24/20at 16:17; Start 03/24/20 at 15:30; Stop 03/24/20 at 15:31; Status DC Insulin Human Regular (HumuLIN R VIAL) 5 unit 1X ONCE IV Last administered on 03/24/20at 16:24; Start 03/24/20 at 15:30; Stop 03/24/20 at 15:31; Status DC Fentanyl Citrate (Fentanyl 2ml Vial) 50 mcg PRN Q2HR PRN IVP PAIN Last administered on 03/25/20at 10:32; Start 03/24/20 at 19:45 Sodium Chloride 1,000 ml @ 1,000 mls/hr Q1H PRN IV hypotension; Start 03/24/20 at 21:38; Stop 03/25/20 at 03:37; Status DC Albumin Human 200 ml @ 200 mls/hr 1X PRN PRN IV Hypotension; Start 03/24/20 at 21:45; Stop 03/25/20 at 03:44; Status DC Sodium Chloride 1,000 ml @ 400 mls/hr Q2H30M PRN IV PATENCY; Start 03/24/20 at 21:38; Stop 03/25/20 at 09:37; Status DC Info (PHARMACY MONITORING -- do not chart) 1 each PRN DAILY PRN MC SEE COMMENTS; Start 03/24/20 at 21:45; Status Cancel Info (PHARMACY MONITORING -- do not chart) 1 each PRN DAILY PRN MC SEE COMMENTS; Start 03/24/20 at 21:45 Multivit/ Folic Acid/Iron (Multivitamin ) 1 tab DAILY PO Last administered on 03/25/20at 09:16; Start 03/25/20 at 09:00 Sevelamer Carbonate (Renvela) 3,200 mg TIDAC PO Last administered on 03/25/20at 07:47; Start 03/25/20 at 07:30 Labetalol HCl (Normodyne Iv Push) 10 mg PRN Q2HR PRN IVP HYPERTENSION Last administered on 03/24/20at 23:45; Start 03/24/20 at 22:30 Ondansetron HCl (Zofran) 4 mg PRN Q4HRS PRN IV NAUSEA/VOMITING Last administered on 03/25/20at 10:31; Start 03/24/20 at 22:30 Acetaminophen (Tylenol) 650 mg PRN Q4HRS PRN PO TEMP OVER 100.4F OR MILD PAIN Last administered on 03/25/20at 07:47; Start 03/24/20 at 22:30 Heparin Sodium (Porcine) (Heparin Sodium) 5,000 unit Q8HRS SQ ; Start 03/25/20 at 06:00 Albuterol Sulfate (Ventolin Neb Soln) 2.5 mg PRN Q4HRS PRN NEB SHORTNESS OF BREATH Last administered on 03/25/20at 08:28; Start 03/24/20 at 22:45 Nicardipine HCl 50 mg/Sodium Chloride 250 ml @ 25 mls/hr CONT PRN IV SEE I/O RECORD Last administered on 03/25/20at 08:27; Start 03/25/20 at 01:15 Carvedilol (Coreg) 25 mg BIDWMEALS PO ; Start 03/25/20 at 11:00 Amlodipine Besylate (Norvasc) 10 mg DAILY PO ; Start 03/25/20 at 11:00 Hydralazine HCl (Apresoline Inj) 10 mg PRN Q4HRS PRN IVP ELEVATED BP, SEE COMMENTS; Start 03/25/20 at 11:00 Urea ([place] Lo 40, X-Viate) 1 orion DAILY TP ; Start 03/25/20 at 11:30 Active Scripts Active Reported Trazodone Hcl 100 Mg Tablet 2 Tab PO QHS Ropinirole Hcl 0.5 Mg Tablet 0.5 Mg PO HS Prazosin Hcl 2 Mg Capsule 1 Cap PO QHS Paroxetine Hcl 20 Mg Tablet 1 Tab PO DAILY Latuda (Lurasidone Hcl) 120 Mg Tablet 120 Mg PO DAILY Hydroxyzine Hcl 25 Mg Tablet 1 Tab PO TID Carvedilol 25 Mg Tablet 25 Mg PO BIDWMEALS Amlodipine Besylate 10 Mg Tablet 10 Mg PO DAILY Ropinirole Hcl 0.5 Mg Tablet 1 Tab PO QHS Renaplex-D Tablet (B,C/Folic/Zinc/Selenometh/D3/E) 1 Each Tablet 1 Tab PO DAILY Renagel (Sevelamer Hcl) 800 Mg Tablet 4 Tab PO TIDAC Allergies Allergies: Coded Allergies: ibuprofen (Verified Allergy, Intermediate, "Hives", 03/25/20) "Hives" ROS General: YES: Fatigue, Malaise PSYCHOLOGICAL ROS: YES: Anxiety HEENT: YES: Heacaches, Nasal congestion ALLERGY AND IMMUNOLOGY: YES: Seasonal Allergies Respiratory: YES: Cough, Orthopnea, Shortness of breath Cardiovascular: yes Orthopnea, yes Edema Gastrointestinal: Yes Constipation Genitourinary: YES Other (ANURIA) Musculoskeletal: Yes Muscular Weakness Neurological: Yes Weakness Skin: Yes Dry Skin Physical Exam General: Alert, Oriented X3, Cooperative, No acute distress HEENT: Atraumatic, PERRLA Lungs: Clear to auscultation Heart: Regular rate, Normal S1, Normal S2 Abdomen: Normal bowel sounds, Soft, No tenderness Extremities: No clubbing, No cyanosis, Other (2+ EDEMA) Skin: No rashes, No breakdown Vitals VITALS Vital Signs Date Time Temp Pulse Resp B/P (MAP) Pulse Ox O2 Delivery O2 Flow Rate FiO2 03/25/20 11:00 98.2 69 20 147/83 (104) 95 Nasal Cannula 3.0 98.2 Labs Labs Laboratory Tests Test 03/24/20 13:22 03/24/20 15:00 03/24/20 22:45 03/25/20 05:00 White Blood Count 8.0 x10^3/uL (4.0-11.0) 9.3 x10^3/uL (4.0-11.0) Red Blood Count 3.37 x10^6/uL (4.30-5.70) 3.10 x10^6/uL (4.30-5.70) Hemoglobin 9.4 g/dL (13.0-17.5) 8.7 g/dL (13.0-17.5) Hematocrit 28.9 % (39.0-53.0) 26.2 % (39.0-53.0) Mean Corpuscular Volume 86 fL (79-100) 85 fL (79-100) Mean Corpuscular Hemoglobin 28 pg (25-35) 28 pg (25-35) Mean Corpuscular Hemoglobin Concent 33 g/dL (31-37) 33 g/dL (31-37) Red Cell Distribution Width 18.8 % (11.5-14.5) 18.9 % (11.5-14.5) Platelet Count 141 x10^3/uL (140-400) 139 x10^3/uL (140-400) Neutrophils (%) (Auto) 85 % (31-73) 81 % (31-73) Lymphocytes (%) (Auto) 6 % (24-48) 5 % (24-48) Monocytes (%) (Auto) 7 % (0-9) 11 % (0-9) Eosinophils (%) (Auto) 2 % (0-3) 2 % (0-3) Basophils (%) (Auto) 1 % (0-3) 1 % (0-3) Neutrophils # (Auto) 6.8 x10^3/uL (1.8-7.7) 7.5 x10^3/uL (1.8-7.7) Lymphocytes # (Auto) 0.5 x10^3/uL (1.0-4.8) 0.4 x10^3/uL (1.0-4.8) Monocytes # (Auto) 0.6 x10^3/uL (0.0-1.1) 1.0 x10^3/uL (0.0-1.1) Eosinophils # (Auto) 0.1 x10^3/uL (0.0-0.7) 0.2 x10^3/uL (0.0-0.7) Basophils # (Auto) 0.1 x10^3/uL (0.0-0.2) 0.1 x10^3/uL (0.0-0.2) Sodium Level 133 mmol/L (136-145) 137 mmol/L (136-145) Potassium Level 6.9 mmol/L (3.5-5.1) 4.7 mmol/L (3.5-5.1) Chloride Level 96 mmol/L (98-107) 97 mmol/L (98-107) Carbon Dioxide Level 18 mmol/L (21-32) 26 mmol/L (21-32) Anion Gap 19 (6-14) 14 (6-14) Blood Urea Nitrogen 128 mg/dL (8-26) 74 mg/dL (8-26) Creatinine 18.8 mg/dL (0.7-1.3) 12.4 mg/dL (0.7-1.3) Estimated GFR (Cockcroft-Gault) 2.7 4.4 BUN/Creatinine Ratio 7 (6-20) Glucose Level 108 mg/dL (70-99) 106 mg/dL (70-99) Calcium Level 8.1 mg/dL (8.5-10.1) 8.0 mg/dL (8.5-10.1) Magnesium Level 2.4 mg/dL (1.8-2.4) Total Bilirubin 0.5 mg/dL (0.2-1.0) Aspartate Amino Transf (AST/SGOT) 11 U/L (15-37) Alanine Aminotransferase (ALT/SGPT) 10 U/L (16-63) Alkaline Phosphatase 75 U/L (46-116) Creatine Kinase 160 U/L (39-308) Troponin I Quantitative 0.173 ng/mL (0.000-0.055) IY-Jzw-W-Type Natriuretic Peptide > 48658 pg/mL (0-124) Total Protein 7.0 g/dL (6.4-8.2) Albumin 3.0 g/dL (3.4-5.0) Albumin/Globulin Ratio 0.8 (1.0-1.7) Phosphorus Level 11.8 mg/dL (2.6-4.7) 25-Hydroxy Vitamin D Total 31.3 ng/mL (30-100) Hepatitis B Surface Antigen Nonreactive (Nonreactive) Hepatitis B Surface Antibody Reactive Segmented Neutrophils % 91 % (35-66) Lymphocytes % 3 % (24-48) Monocytes % 4 % (0-10) Eosinophils % 1 % (0-5) Basophils % 1 % (0-3) Platelet Estimate Decreased (ADEQUATE) Anisocytosis Present Triglycerides Level 77 mg/dL (0-150) Cholesterol Level 114 mg/dL (0-200) LDL Cholesterol, Calculated 74 mg/dL (0-100) VLDL Cholesterol, Calculated 15 mg/dL (0-40) Non-HDL Cholesterol Calculated 89 mg/dL (0-129) HDL Cholesterol 25 mg/dL (40-60) Cholesterol/HDL Ratio 4.6 Thyroid Stimulating Hormone (TSH) 3.388 uIU/mL (0.358-3.74) Laboratory Tests Test 03/24/20 13:22 03/24/20 15:00 03/24/20 22:45 03/25/20 05:00 White Blood Count 8.0 x10^3/uL (4.0-11.0) 9.3 x10^3/uL (4.0-11.0) Red Blood Count 3.37 x10^6/uL (4.30-5.70) 3.10 x10^6/uL (4.30-5.70) Hemoglobin 9.4 g/dL (13.0-17.5) 8.7 g/dL (13.0-17.5) Hematocrit 28.9 % (39.0-53.0) 26.2 % (39.0-53.0) Mean Corpuscular Volume 86 fL (79-100) 85 fL (79-100) Mean Corpuscular Hemoglobin 28 pg (25-35) 28 pg (25-35) Mean Corpuscular Hemoglobin Concent 33 g/dL (31-37) 33 g/dL (31-37) Red Cell Distribution Width 18.8 % (11.5-14.5) 18.9 % (11.5-14.5) Platelet Count 141 x10^3/uL (140-400) 139 x10^3/uL (140-400) Neutrophils (%) (Auto) 85 % (31-73) 81 % (31-73) Lymphocytes (%) (Auto) 6 % (24-48) 5 % (24-48) Monocytes (%) (Auto) 7 % (0-9) 11 % (0-9) Eosinophils (%) (Auto) 2 % (0-3) 2 % (0-3) Basophils (%) (Auto) 1 % (0-3) 1 % (0-3) Neutrophils # (Auto) 6.8 x10^3/uL (1.8-7.7) 7.5 x10^3/uL (1.8-7.7) Lymphocytes # (Auto) 0.5 x10^3/uL (1.0-4.8) 0.4 x10^3/uL (1.0-4.8) Monocytes # (Auto) 0.6 x10^3/uL (0.0-1.1) 1.0 x10^3/uL (0.0-1.1) Eosinophils # (Auto) 0.1 x10^3/uL (0.0-0.7) 0.2 x10^3/uL (0.0-0.7) Basophils # (Auto) 0.1 x10^3/uL (0.0-0.2) 0.1 x10^3/uL (0.0-0.2) Sodium Level 133 mmol/L (136-145) 137 mmol/L (136-145) Potassium Level 6.9 mmol/L (3.5-5.1) 4.7 mmol/L (3.5-5.1) Chloride Level 96 mmol/L (98-107) 97 mmol/L (98-107) Carbon Dioxide Level 18 mmol/L (21-32) 26 mmol/L (21-32) Anion Gap 19 (6-14) 14 (6-14) Blood Urea Nitrogen 128 mg/dL (8-26) 74 mg/dL (8-26) Creatinine 18.8 mg/dL (0.7-1.3) 12.4 mg/dL (0.7-1.3) Estimated GFR (Cockcroft-Gault) 2.7 4.4 BUN/Creatinine Ratio 7 (6-20) Glucose Level 108 mg/dL (70-99) 106 mg/dL (70-99) Calcium Level 8.1 mg/dL (8.5-10.1) 8.0 mg/dL (8.5-10.1) Magnesium Level 2.4 mg/dL (1.8-2.4) Total Bilirubin 0.5 mg/dL (0.2-1.0) Aspartate Amino Transf (AST/SGOT) 11 U/L (15-37) Alanine Aminotransferase (ALT/SGPT) 10 U/L (16-63) Alkaline Phosphatase 75 U/L (46-116) Creatine Kinase 160 U/L (39-308) Troponin I Quantitative 0.173 ng/mL (0.000-0.055) PV-Zrv-F-Type Natriuretic Peptide > 92266 pg/mL (0-124) Total Protein 7.0 g/dL (6.4-8.2) Albumin 3.0 g/dL (3.4-5.0) Albumin/Globulin Ratio 0.8 (1.0-1.7) Phosphorus Level 11.8 mg/dL (2.6-4.7) 25-Hydroxy Vitamin D Total 31.3 ng/mL (30-100) Hepatitis B Surface Antigen Nonreactive (Nonreactive) Hepatitis B Surface Antibody Reactive Segmented Neutrophils % 91 % (35-66) Lymphocytes % 3 % (24-48) Monocytes % 4 % (0-10) Eosinophils % 1 % (0-5) Basophils % 1 % (0-3) Platelet Estimate Decreased (ADEQUATE) Anisocytosis Present Triglycerides Level 77 mg/dL (0-150) Cholesterol Level 114 mg/dL (0-200) LDL Cholesterol, Calculated 74 mg/dL (0-100) VLDL Cholesterol, Calculated 15 mg/dL (0-40) Non-HDL Cholesterol Calculated 89 mg/dL (0-129) HDL Cholesterol 25 mg/dL (40-60) Cholesterol/HDL Ratio 4.6 Thyroid Stimulating Hormone (TSH) 3.388 uIU/mL (0.358-3.74) Images Images PORTABLE CHEST 1V Clinical indications: Dyspnea. COMPARISON: None available. Findings: Mild bilateral perihilar interstitial pulmonary edema or bronchitis is seen. No Pool B line's or lung consolidation or pleural effusion or pneumothorax is seen. The heart size is enlarged. Mediastinum and pulmonary vasculature are unremarkable. IMPRESSION: Bilateral interstitial pulmonary edema or bronchitis. Cardiomegaly. Assessment/Plan Assessment/Plan IMP HYPERKALEMIA ESRD-MWF ANEMIA ACUTE ON CHRONIC CHF-PROB HD NON COMPLIANCE UNCONTROLLED HTN PLAN CARDIOLOGY W/U RESUME HOME MEDS HTN SHOULD IMPROVE WITH HD EMERGENT HD DONE LAST NIGHT HD AGAIN TODAY UF TO DW VICTOR MANUEL ONCE HTN IS BETTER CONTROLLED CARDENE GTT WILL FOLLOW ROZ IZAGUIRRE MD Mar 25, 2020 11:51
[2020-03-25] MEDS: amLODIPine BESYLATE 10 MG TABLET PO SCH (13:46)
[2020-03-25] MEDS: CARVEDILOL 12.5 MG TABLET. PO SCH ×2 (13:47→19:22)
[2020-03-25] MEDS: UREA 40% TOPICAL CREAM 28.3GM TUBE. TP SCH (13:47)
[2020-03-25] MEDS ORDERED: IV NORMAL SALINE 1000ML BAG 1,000 ML IV PRN ×2 (14:28)
[2020-03-25] MEDS ORDERED: ALBUMIN HUMAN 25% 200 ML IV PRN (14:30)
[2020-03-25] MEDS ORDERED: DIALYSIS PATIENT. MC PRN ×2 (14:30)
--- NOTE | 2020-03-25 14:52 | CARD ---
MR#: [id number] Date of Study: 03/25/2020 Ordering Physician: HEIDY QUESADA, Referring Physician: HEIDY QUESADA Tech: Omaira Grey [facility] APPROVED REPORT EXAM: Two-dimensional and M-mode echocardiogram with Doppler and color Doppler. Other Information Quality : Good INDICATION Hypertension/HCVD Congestive Heart Failure 2D DIMENSIONS RVDd3.1 (2.9-3.5cm)Left Atrium(2D)4.3 (1.6-4.0cm) IVSd1.8 (0.7-1.1cm)Aortic Root(2D)3.0 (2.0-3.7cm) LVDd5.0 (3.9-5.9cm)LVOT Diameter2.0 (1.8-2.4cm) PWd1.6 (0.7-1.1cm)LVDs2.9 (2.5-4.0cm) FS (%) 30.0 %SV86.9 ml LVEF(%)60.0 (>50%) Aortic Valve AoV Peak Abdiaziz.315.4cm/sAoV VTI63.7cm AO Peak GR.39.8mmHgLVOT VTI 27.53cm AO Mean GR.23mmHgAVA (VTI)1.40cm2 Mitral Valve MV E Zphhiigy407.7cm/sMV DECEL BUWK151gr MV A Beqxosxl313.9cm/sE/A Ratio1.3 Tricuspid Valve TR P. Qhnrtkpb229gq/sRAP DEMVYVOT3pxPd TR Peak Gr.99rmIkQCOP79gbMw Pulmonary Vein S1 Ozlyasmr79.6cm/sS2 Negujelo78.16cm/s D2 Tcbbtmnu44.2cm/s LEFT VENTRICLE The left ventricle is normal size. There is mild to moderate concentric left ventricular hypertrophy. The left ventricular systolic function is normal. The Ejection Fraction is 55%. There is normal LV s egmental wall motion. The left ventricular diastolic function and filling is normal for age. RIGHT VENTRICLE The right ventricle is normal size. The right ventricular systolic function is normal. ATRIA The left atrium is mildly dilated. The right atrium size is normal. The interatrial septum is intact with no evidence for an atrial septal defect or patent foramen ovale as noted on 2-D or Doppler imagi ng. AORTIC VALVE The aortic valve is calcified and displays decreased opening. Doppler and Color Flow revealed no sign ificant aortic regurgitation. Calculated aortic valve area is 1.4 cm2 with maximum pressure gradient of 40 mmHg and mean pressure gradient of 23 mmHg. Doppler and color-flow analysis revealed mild aorti c stenosis. MITRAL VALVE The mitral valve is mildly thickened but opens well. Mitral annular calcification is mild to moderate . There is no evidence of mitral valve prolapse. There is no mitral valve stenosis. Doppler and Color -flow revealed trace mitral regurgitation. TRICUSPID VALVE The tricuspid valve is normal in structure and function. Doppler and Color Flow revealed trace to mil d tricuspid regurgitation. There is moderate pulmonary hypertension. The PA pressure was estimated at 44 mmHg. There is no tricuspid valve stenosis. PULMONIC VALVE The pulmonic valve is not well visualized. Doppler and Color Flow revealed no pulmonic valvular regur gitation. There is no pulmonic valvular stenosis. GREAT VESSELS The aortic root is normal in size. The ascending aorta is mildly dilated t 3.7 cm. The IVC is dilated and collapses >50% with inspiration. PERICARDIAL EFFUSION There is small left pleural effusion. There is no evidence of significant pericardial effusion. Critical Notification Critical Value: No <Conclusion> The left ventricular systolic function is normal. The Ejection Fraction is 55%. There is normal LV segmental wall motion. Mild aortic stenosis. Trace mitral regurgitation. Trace to mild tricuspid regurgitation. The PA pressure was estimated at 44 mmHg. There is no evidence of significant pericardial effusion. Signed by : Rodrigue Mills, Electronically Approved : 03/25/2020 14:51:55
[2020-03-25 15:00] VITALS: BP 159/87
--- NOTE | 2020-03-25 15:28 | NUR ---
SW following. Discussed with RN, pt from home, uses oxygen at home, renal diet. Pt does dialysis at [facility], but reporting transportation has not been coming so he missed his dialysis days. MARIA ISABEL contacted [facility] to determine with facility so can discuss with social and political studies professor, MARIA ISABEL left voicemail at [facility], awaiting call back to determine if this is pt's clinic. MARIA ISABEL will continue to follow.
[2020-03-25 20:25] VITALS: BP 180/99
--- NOTE | 2020-03-25 20:32 | NUR ---
Pt transferred to room 262 at 2030 in NAD after HD complete. Updated report given to accepting RN. All belongings with patient
[2020-03-25] MEDS: LABETALOL 20 MG/4 ML DISP.SYRIN. IVP PRN (20:51)
[2020-03-25 23:00] VITALS: BP 142/78
[2020-03-26 03:07] VITALS: BP 192/103
[2020-03-26] MEDS: LABETALOL 20 MG/4 ML DISP.SYRIN. IVP PRN (05:26)
[2020-03-26] MEDS: HEPARIN for SUB-Q USE 5,000 UNIT/ML VIAL. SQ SCH ×2 (06:00→14:00)
[2020-03-26 07:00] VITALS: BP 184/96
[2020-03-26] MEDS: SEVELAMER CARBONATE 800 MG TABLET. PO SCH ×2 (08:45→12:41)
[2020-03-26] MEDS: amLODIPine BESYLATE 10 MG TABLET PO SCH (08:46)
[2020-03-26] MEDS: UREA 40% TOPICAL CREAM 28.3GM TUBE. TP SCH (08:46)
[2020-03-26] MEDS: PRENATAL MULTIVITAMIN TABLET. PO SCH (08:46)
[2020-03-26] MEDS: CARVEDILOL 12.5 MG TABLET. PO SCH (08:46)
--- NOTE | 2020-03-26 10:37 | PDOC ---
PROGRESS NOTES Date of Service: DATE: 03/26/20 TIME: 10:37 Subjective Subjective Dyspnea improved. Wants to go home. Objective Objective Vital Signs Date Time Temp Pulse Resp B/P (MAP) Pulse Ox O2 Delivery O2 Flow Rate FiO2 03/26/20 08:46 71 184/96 03/26/20 08:18 Room Air 03/26/20 07:00 98.2 18 98 98.2 03/26/20 03:07 3.0 Intake and Output 03/26/20 07:00 Intake Total 1310 ml Balance 1310 ml Intake Oral 1310 ml # Voids 2 # Bowel Movements 1 Physical Exam Abdomen: Normal bowel sounds, Soft, No tenderness Heart: Regular rate, Normal S1, Normal S2 Extremities: No clubbing, No cyanosis, Other (2+ EDEMA) General: Alert, Oriented X3, Cooperative, No acute distress HEENT: Atraumatic, PERRLA Lungs: Clear to auscultation MUSCULOSKELETAL: Osteoarthritic changes both hands Neuro: Normal speech, Sensation intact Psych/Mental Status: Mental status NL, Mood NL Skin: No rashes, No breakdown Assessment Assessment 1. Acute on chronic diastolic CHF: due to missed HD. Continue fluid removal with 2. ESRD with hyperkalemia: has been missing HD days due to transportation problem 3. HTN urgency: Blood pressure continues to be elevated. Change Coreg to labetalol for better control. 4. Mild troponin elevation: due above culprits, demand mediated. No CP no acute EKG changes. Consider ischemic evaluation outpatient. 5. suspect COPD with tobaccoism 6. Noncompliance: multiple missed HD due transportation issues 7. Murmur: 8. Obesity Plan Plan of Care Problems Medical Problems: (1) Cardiomegaly Status: Acute (2) Elevated troponin Status: Acute (3) ESRD (end stage renal disease) Status: Acute (4) Fluid overload Status: Acute (5) Hyperkalemia Status: Acute Comment Review of Relevant I have reviewed the following items [place] (where applicable) has been applied. Medications Current Medications Albumin Human 200 ml @ 200 mls/hr 1X PRN PRN IV Hypotension; Start 03/25/20 at 14:30; Stop 03/25/20 at 20:29; Status DC Amlodipine Besylate (Norvasc) 10 mg DAILY PO Last administered on 03/26/20at 08: 46; Start 03/25/20 at 11:00 Carvedilol (Coreg) 25 mg BIDWMEALS PO Last administered on 03/26/20at 08:46; Start 03/25/20 at 11:00 Hydralazine HCl (Apresoline Inj) 10 mg PRN Q4HRS PRN IVP ELEVATED BP, 1ST CHOICE; Start 03/25/20 at 11:00 Info (PHARMACY MONITORING -- do not chart) 1 each PRN DAILY PRN MC SEE COMMENTS; Start 03/25/20 at 14:30 Info (PHARMACY MONITORING -- do not chart) 1 each PRN DAILY PRN MC SEE COMMENTS; Start 03/25/20 at 14:30; Status Cancel Sodium Chloride 1,000 ml @ 400 mls/hr Q2H30M PRN IV PATENCY; Start 03/25/20 at 14:28; Stop 03/26/20 at 02:27; Status DC Sodium Chloride 1,000 ml @ 1,000 mls/hr Q1H PRN IV hypotension; Start 03/25/20 at 14:28; Stop 03/25/20 at 20:27; Status DC Urea ([place] Lo 40, X-Viate) 1 orion DAILY TP Last administered on 03/26/20at 08:46; Start 03/25/20 at 11:30 Vitals/I & O Vital Sign - Last 24 Hours 03/25/20 03/25/20 03/25/20 03/25/20 11:00 11:02 13:46 13:47 Temp 98.2 98.2 Pulse 69 67 67 Resp 20 B/P (MAP) 147/83 (104) 164/100 164/100 Pulse Ox 95 96 O2 Delivery Nasal Cannula Nasal Cannula O2 Flow Rate 3.0 3.0 03/25/20 03/25/20 03/25/20 03/25/20 15:00 19:22 20:25 20:25 Temp 98.4 98.0 98.4 98.0 Pulse 68 69 68 Resp 22 19 B/P (MAP) 159/87 (111) 185/91 180/99 (126) Pulse Ox 95 99 O2 Delivery Nasal Cannula Nasal Cannula Nasal Cannula O2 Flow Rate 3.0 3.0 3.0 03/25/20 03/25/20 03/26/20 03/26/20 20:51 23:00 03:07 05:26 Temp 98.8 98.3 98.8 98.3 Pulse 68 69 63 72 Resp 18 18 B/P (MAP) 180/99 142/78 (99) 192/103 (132) 190/100 Pulse Ox 96 97 O2 Delivery Nasal Cannula Nasal Cannula O2 Flow Rate 3.0 3.0 03/26/20 03/26/20 03/26/20 03/26/20 07:00 08:18 08:46 08:46 Temp 98.2 98.2 Pulse 71 71 71 Resp 18 B/P (MAP) 184/96 (125) 184/96 184/96 Pulse Ox 98 O2 Delivery Room Air Room Air Intake and Output 03/25/20 03/25/20 03/26/20 15:00 23:00 07:00 Intake Total 720 ml 240 ml 350 ml Balance 720 ml 240 ml 350 ml ODILON MENJIVAR MD Mar 26, 2020 10:37
[2020-03-26 11:00] VITALS: BP 173/89
--- NOTE | 2020-03-26 12:48 | PDOC ---
[employer] PROGRESS NOTE Date of Service DOS: DATE: 03/26/20 TIME: 12:27 Chief Complaint Chief Complaint A/P: Shortness of breath - due to fluid overload from missed dialysis, will need UF. Nebs for asthma Acute metabolic encephalopathy - likely uremic, will need dialysis Hyperkalemia - will cont on bicarbonate, needs dialysis. Nephrology consulted Left leg pain and swelling - venous doppler ordered to r/o DVT ESRD (MWF) - older adult social work specialist to assist with transportation to dialysis Asthma with COPD - counseled on smoking cessation. nebs Hypertensive urgency - IV labetalol, restart home meds Smoker - counseled on cessation Elevated troponin - likely demand ischemia from above, will trend FEN- Renal diet PPX - heparin FULL CODE Dispo - inpatient for life-threatening hyperkalemia History of Present Illness History of Present Illness 03/26/2020 Patient seen and examined. Patient sitting up in bedside chair eating breakfast. Patient states he has transportation and chair time scheduled for dialysis at [facility] on Saturday. Discussed with RN. Discussed with case management. Mr Barroso is a 44 yo M w/ PMHx ESRD (MWF), asthma, CHF, COPD and hypertension, smoker who presents the ED with complaints of shortness of breath and lower extremity swelling and some left left pain. He notes he missed dialysis for "too long" states his transportation doesn't pick him up. Usually goes to but no longer wants to pursue medical care there. Systolic BP in 200s CXR with fluid overload. Labs significant for WBC 8, Hb 9.4, Platelets 141, Na 133, K 6.9, BUN 128, CR 18.8, glucose 108, Albumin 3, Trop 0.173, BNP > 35K EKG - Sinus rhythm at 66 bpm, left axis deviation, QTC 448, T wave inversion aVL, no ST elevations or ST depressions Given insulin, D50, albuterol, sodium bicarbonate for hyperkalemia, and admitted to ICU for further care. BP improved slightly, however, requiring cardene GTT. labs improved with K4.7, BUN 79, CR 12.44 Phos 11.8. Still c/o bilateral LE pain. US negative for DVT, no groin lesions, he is not sexually active. Still very edematous likely from fluid overload. Vitals/I&O Vitals/I&O: Vital Signs Date Time Temp Pulse Resp B/P (MAP) Pulse Ox O2 Delivery O2 Flow Rate FiO2 03/26/20 11:00 97.8 73 16 173/89 (117) 97 Room Air 97.8 03/26/20 03:07 3.0 I & O 03/25/20 03/25/20 03/26/20 15:00 23:00 07:00 Intake Total 720 ml 240 ml 350 ml Balance 720 ml 240 ml 350 ml Physical Exam General: Alert, Oriented X3, Cooperative, No acute distress Heart: Regular rate, Normal S1, Normal S2 Lungs: Clear Abdomen: Normal bowel sounds, Soft, No tenderness Extremities: No clubbing, No cyanosis, Other (2+ EDEMA) Skin: No rashes, No breakdown Review of Systems Review of Systems: Denies N/V. Denies SOB. Assessment and Plan Assessmemt and Plan Problems Medical Problems: (1) Cardiomegaly Status: Acute (2) Elevated troponin Status: Acute (3) ESRD (end stage renal disease) Status: Acute (4) Fluid overload Status: Acute (5) Hyperkalemia Status: Acute Assessment: 1) Shortness of breath due to volume overload 2) Acute metabolic encephalopathy 3) Hyperkalemia 4) ESRD (MWF) Plan: Continue home meds. DVT prophylaxis. Activity as tolerated. Full code. Hope to d/c home today. Comment Review of Relevant I have reviewed the following items [place] (where applicable) has been applied. Justifications for Admission Other Justification DES PEDRAZA III, DO Mar 26, 2020 12:48
[2020-03-26 13:17] VITALS: BP 173/89
[2020-03-26] MEDS ORDERED: LABE200T4 PO ×2 (13:25→13:44)
--- NOTE | 2020-03-26 15:10 | NUR ---
Discharge instructions given to patient. Education given over medication changes, hyperkalemia, and hypertension. Pt states that his correctional casework specialist has set up transportation to his dialysis center for Saturday. Dialysis and medication compliance reviewed with pt. Cab pass given and pt awaiting ride at this time.
[2020-03-26] MEDS ORDERED: LABETALOL HCL 200 MG TABLET PO SCH (21:00)
--- NOTE | 2020-03-27 13:21 | DS ---
DATE OF DISCHARGE: 03/26/2020 ADMISSION DIAGNOSIS: Hyperkalemia. DISCHARGE DIAGNOSES: Resolving hyperkalemia secondary to end-stage renal disease, resolving volume overload. HOSPITAL COURSE: The patient is a pleasant 44-year-old male who presented with volume overload and hyperkalemia. He is on dialysis. He was admitted. We got him dialyzed a few times, corrected his electrolytes and his fluid status. Yesterday, I saw and examined him. He is at his baseline. We discharged to home. DISPOSITION: Home. ACTIVITY: As tolerated. DIET: Low sodium. MEDICATIONS: Please see MRAD. TOTAL TIME: 32 minutes. DES PEDRAZA DO DR: ALISA/deuce JOB#: [id number] / [id number]
== END 2020-03-26 15:10 | disposition home or self-care (01) | DRG 291 ==
LOC: ER 12:53 → ED HOLD 16:56 → 1 WEST ICU 20:55 → 2 SOUTH 03-25 20:30
PROVIDERS: ADMIT Internal Medicine; ATTEND Internal Medicine
PROC: 5A1D70Z Performance of Urinary Filtration, Intermittent, Less than 6 Hours Per Day (ICD-10-PCS; principal; 2020-03-25)
DX: I13.2 Hypertensive heart and chronic kidney disease with heart failure and with stage 5 chronic kidney disease, or end stage renal disease (principal); G93.41 Metabolic encephalopathy; I50.33 Acute on chronic diastolic (congestive) heart failure; N18.6 End stage renal disease; E87.5 Hyperkalemia; D64.9 Anemia, unspecified; E66.9 Obesity, unspecified; Z68.30 Body mass index [BMI] 30.0-30.9, adult; F17.210 Nicotine dependence, cigarettes, uncomplicated; F31.9 Bipolar disorder, unspecified; I16.0 Hypertensive urgency; J44.9 Chronic obstructive pulmonary disease, unspecified; Z82.49 Family history of ischemic heart disease and other diseases of the circulatory system; Z91.19 Patient's noncompliance with other medical treatment and regimen; Z99.2 Dependence on renal dialysis; E21.3 Hyperparathyroidism, unspecified; F41.9 Anxiety disorder, unspecified; Z88.8 Allergy status to other drugs, medicaments and biological substances
CPT/HCPCS: 36415; 71045; 80048; 80053; 80061; 82306; 82550; 83735; 83880; 84100; 84443; 84484; 85007; 85025; 86706; 87340; 93005; 93306; 93970; 94640; 96374; 96375; 99291; J0360; J0610; J1815; J2405; J3010; J3490; J7050; G0378; J7030; J7613

== ENCOUNTER 2020-04-15 16:19 | Inpatient (IN) | payer MEDICARE, MEDICAID ==
[~2020-04-15] VITALS: Ht 167.6 cm; Wt 80.0 kg
[~2020-04-15 16:19] MED LIST: AMLO-187 PO; B,C/1TAB PO; CARV25TA2 PO; HYDR25TA PO; LABE200T4 PO; LURA120T PO; PARO20TA3 PO; PRAZ2CAP2 PO; ROPI0.5T4 PO; SEVE800T8 PO; TRAZ-123 PO
--- NOTE | 2020-04-15 17:23 | PHYS DOC ---
Past Medical History Past Medical History: Anxiety, Asthma, CHF, COPD, Hypertension, Renal Disease, Renal Failure, Other Additional Past Medical Histor: DIALYSIS M/W/F (DAVINA YI DO) Past Surgical History: Other Additional Past Surgical Histo: LEFT UPPER EXTREMITY FISTULA (DAVINA YI DO) Smoking Status: Unknown if ever smoked Alcohol Use: None Drug Use: None (DAVINA YI DO) General Adult EDM: Chief Complaint: DIALYSIS PROBLEM HPI: HPI: History obtained from the patient. Patient is a 44-year-old male with a history of ESRD secondary to hypertension who presents with chief complaint of missed dialysis. He states he has not received dialysis treatment in 1 week. He receives dialysis treatments typically on Mondays, Wednesdays, and Fridays. He states he has not gone to dialysis treatment because he has had a lack of transportation. He does note some shortness of breath that is worse with laying flat. Denies chest pain. Does endorse orthopnea. Endorses bendopnea. Denies abdominal pain. Denies nausea or vomiting. Notes his legs seem a little bit more red and tender bilaterally. Denies falls or trauma. Does endorse tobacco abuse. Is unsure of who his host coordinator is. States he presented a because of shortness of breath became worse. No other complaints. (DAVINA YI DO) Review of Systems: Review of Systems: Constitutional: Denies fever or chills. [] Eyes: Denies change in visual acuity. [] HENT: Denies nasal congestion or sore throat. [] Respiratory: Positive for shortness of breath Cardiovascular: Denies chest pain or edema. [] GI: Denies abdominal pain, nausea, vomiting, bloody stools or diarrhea. [] : Denies dysuria. [] Musculoskeletal: Denies back pain or joint pain. [] Integument: Denies rash. [] Neurologic: Denies headache, focal weakness or sensory changes. [] Endocrine: Denies polyuria or polydipsia. [] Lymphatic: Denies swollen glands. [] Psychiatric: Denies depression or anxiety. [] (DAVINA YI DO) Heart Score: Risk Factors: Risk Factors: DM, Current or recent (<one month) smoker, HTN, HLP, family history of CAD, obesity. Risk Scores: Score 0 - 3: 2.5% MACE over next 6 weeks - Discharge Home Score 4 - 6: 20.3% MACE over next 6 weeks - Admit for Clinical Observation Score 7 - 10: 72.7% MACE over next 6 weeks - Early Invasive Strategies (DAVINA YI DO) Allergies: Allergies: Allergies Coded Allergies Type Severity Reaction Last Updated Verified ibuprofen Allergy Intermediate "Hives" 03/25/20 Yes (DAVINA YI DO) Physical Exam: PE: Constitutional: Well developed, well nourished, no acute distress, non-toxic appearance. [] HENT: Normocephalic, atraumatic, bilateral external ears normal, oropharynx moist, no oral exudates, nose normal. [] Eyes: PERRLA, EOMI, conjunctiva normal, no discharge. [] Neck: Normal range of motion, no tenderness, supple, no stridor. [] Cardiovascular:Heart rate regular rhythm, no murmur [] Lungs & Thorax: Bilateral breath sounds clear to auscultation. Left upper extremity fistula with palpable thrill and audible bruit [] Abdomen: Distended, soft, no tenderness, no masses, no pulsatile masses. [] Skin: Warm, dry, no erythema, no rash. [] Back: No tenderness, no CVA tenderness. [] Extremities: Warm, erythematous, indurated lower extremities bilaterally. No palpable fluctuance or crepitus palpated. Neurologic: Alert and oriented X 3, normal motor function, normal sensory function, no focal deficits noted. [] Psychologic: Affect normal, judgement normal, mood normal. [] (DAVINA YI DO) PE: Constitutional: Well developed, well nourished, no acute distress, non-toxic appearance HENT: Normocephalic, atraumatic Eyes: Conjunctiva normal, no discharge Neck: Normal range of motion, supple Lungs & Thorax: No respiratory distress, equal chest rise and fall Skin: Warm, dry, no erythema, no rash Extremities: No tenderness, ROM intact Neurologic: Alert and oriented X 3, no focal deficits noted Psychologic: Affect normal, judgment normal (KAREL PADILLA DO) Current Patient Data: Labs: Laboratory Tests Test 04/15/20 17:25 White Blood Count 7.0 x10^3/uL Red Blood Count 3.33 x10^6/uL Hemoglobin 9.4 g/dL Hematocrit 28.3 % Mean Corpuscular Volume 85 fL Mean Corpuscular Hemoglobin 28 pg Mean Corpuscular Hemoglobin Concent 33 g/dL Red Cell Distribution Width 20.2 % Platelet Count 172 x10^3/uL Neutrophils (%) (Auto) 74 % Lymphocytes (%) (Auto) 9 % Monocytes (%) (Auto) 11 % Eosinophils (%) (Auto) 5 % Basophils (%) (Auto) 0 % Neutrophils # (Auto) 5.2 x10^3/uL Lymphocytes # (Auto) 0.6 x10^3/uL Monocytes # (Auto) 0.8 x10^3/uL Eosinophils # (Auto) 0.4 x10^3/uL Basophils # (Auto) 0.0 x10^3/uL Platelet Estimate Adequate Anisocytosis Slight Sodium Level 133 mmol/L Potassium Level 6.8 mmol/L Chloride Level 92 mmol/L Carbon Dioxide Level 23 mmol/L Anion Gap 18 Blood Urea Nitrogen 107 mg/dL Creatinine 16.9 mg/dL Estimated GFR (Cockcroft-Gault) 3.1 BUN/Creatinine Ratio 6 Glucose Level 91 mg/dL Calcium Level 8.5 mg/dL Magnesium Level 2.5 mg/dL Total Bilirubin 0.7 mg/dL Aspartate Amino Transf (AST/SGOT) 12 U/L Alanine Aminotransferase (ALT/SGPT) 11 U/L Alkaline Phosphatase 110 U/L Total Protein 7.5 g/dL Albumin 3.1 g/dL Albumin/Globulin Ratio 0.7 Current Medications Medications (Trade) Dose Ordered Sig/Michel Route PRN Reason Start Time Stop Time Status Last Admin Dose Admin Calcium Gluconate (Calcium Gluconate) 2,000 mg 1X ONCE IVP 04/15/20 18:00 04/15/20 18:01 DC Insulin Human Regular (HumuLIN R VIAL) 5 unit 1X ONCE IV 04/15/20 18:00 04/15/20 18:01 Dextrose 250 ml @ 0 mls/hr 1X ONCE IV 04/15/20 18:00 04/15/20 18:01 UNV Vital Signs: Vital Signs Date Time Temp Pulse Resp B/P (MAP) Pulse Ox O2 Delivery O2 Flow Rate FiO2 04/15/20 16:22 98.2 67 22 182/97 (125) 94 Room Air 98.2 (DAVINA YI DO) EKG: EKG: [] EKG consistent with normal sinus rhythm. Ventricular rate of 64 bpm. Left axis noted. Flipped T waves noted in lead aVL. Prominent T waves noted in lead V2 and V3. No acute ischemic changes noted. (DAVINA YI DO) Radiology/Procedures: Radiology/Procedures: [facility] [address] [place] [address] IMAGING REPORT Signed PATIENT: SALLY ROPER ACCOUNT: [id number] : 1975 LOCATION: ER AGE: 44 SEX: M EXAM STATUS: REG ER ORD. PHYSICIAN: DAVINA YI DO REASON: missed dialysis PROCEDURE: CHEST AP ONLY Single view chest dated 04/15/2020. Comparison made to 03/24/2020. CLINICAL INDICATION: Missed dialysis. FINDINGS: Single upright portable exam performed. Heart size mildly enlarged, stable. There is prominent interstitial changes at the perihilar regions. No consolidation or pleural effusion. No pneumothorax. IMPRESSION: 1. Mild interstitial edema. 2. Stable cardiomegaly. Electronically signed by: Karel Mathur MD (04/15/2020 5:45 PM) [facility] DICTATED and SIGNED BY: KAREL MATHUR MD DATE: 04/15/20 1745 [] (DAVINA YI DO) Course & Med Decision Making: Course & Med Decision Making Pertinent Labs and Imaging studies reviewed. (See chart for details) [] Patient is a 44-year-old male who presents with chief complaint of missed dialysis over the past week. Vital signs notable for hypertension. Exam noted above. Labs are concerning for potassium of 6.8. Elevated creatinine and BUN. Patient will require hospitalization for hemodialysis. He will be given 2 g of calcium gluconate as well as insulin with dextrose to treat his hyperkalemia. Patient remains hemodynamically stable without bradycardia and is on room air cu rrently. I have signed out the patient's emergency department care to Dr. Padilla. We discussed the history, physical exam findings, completed and pending laboratory results and imaging studies. We have also discussed the current treatment plan and expected clinical course. Please refer to chart for the patient's remaining emergency department course, final disposition, and clinical impression(s). (DAVINA YI DO) Course & Med Decision Making 1800- Signout received from Dr. Yi for patient with hx of ESRD on HD who has missed his HD due to transportation issues. Patient had previously been noted to have significant hyperkalemia with CXR with vascular congestion. EKG reviewed. Labs reviewed. Patient previously received calcium, insulin, and dextrose. Patient requiring admission for further evaluation and treatment. Discussed with Dr. Renee (hospitalist) who is in agreement with admission. Discussed case with Dr. Mendez (nephrology) who is in agreement with consultation and will make arrangements for patient to receive HD tonight. Discussed findings and plan with patient, who acknowledges understanding and agreement. (KAREL PADILLA DO) Dragon Disclaimer: Dragon Disclaimer: This electronic medical record was generated, in whole or in part, using a voice recognition dictation system. (DAVINA YI DO) Departure Departure Impression: Primary Impression: Hyperkalemia Additional Impressions: ESRD (end stage renal disease) HTN (hypertension) Qualified Codes: I10 - Essential (primary) hypertension Tobacco abuse Pulmonary edema Qualified Codes: J81.0 - Acute pulmonary edema Disposition: ADMITTED INPT THIS HOSP Admitting Physician: ENRICO Peterson) (KAREL PADILLA DO) Condition: GUARDED Referrals: NO PCP (PCP) Critical Care Time Critical care time was 30 minutes which includes time at bedside, spent in discussion of patient's care with specialists and/or family members, with interpretation of laboratory and/or radiological studies and is exclusive of procedures. (KAREL PADILLA DO) DAVINA YI DO Apr 15, 2020 17:23 KAREL PADILLA DO Apr 15, 2020 18:18
[2020-04-15 17:41] LABS: BASO % 0 % (0-3); EOS # 0.4 x10^3/uL (0.0-0.7); EOS % 5 % (0-3); HEMATOCRIT 28.3 % (39.0-53.0); HEMOGLOBIN 9.4 g/dL (13.0-17.5); LYMPH # 0.6 x10^3/uL (1.0-4.8); LYMPH % 9 % (24-48); MEAN CORPUSCULAR HEMOGLOBIN 28 pg (25-35); MEAN CORPUSCULAR HGB CONC 33 g/dL (31-37); MEAN CORPUSCULAR VOLUME 85 fL (79-100); MONO # 0.8 x10^3/uL (0.0-1.1); MONO % 11 % (0-9); NEUT # 5.2 x10^3/uL (1.8-7.7); NEUT % 74 % (31-73); PLATELET COUNT 172 x10^3/uL (140-400); RED BLOOD COUNT 3.33 x10^6/uL (4.30-5.70); RED CELL DISTRIBUTION WIDTH 20.2 % (11.5-14.5)
--- NOTE | 2020-04-15 17:48 | RAD ---
Single view chest dated 04/15/2020. Comparison made to 03/24/2020. CLINICAL INDICATION: Missed dialysis. FINDINGS: Single upright portable exam performed. Heart size mildly enlarged, stable. There is prominent interstitial changes at the perihilar regions. No consolidation or pleural effusion. No pneumothorax. IMPRESSION: 1. Mild interstitial edema. 2. Stable cardiomegaly. Electronically signed by: Karel Mathur MD (04/15/2020 5:45 PM) [place]
[2020-04-15 17:54] LABS: ALBUMIN 3.1 g/dL (3.4-5.0); ALBUMIN/GLOBULIN RATIO 0.7 (1.0-1.7); CALCIUM 8.5 mg/dL (8.5-10.1); CREATININE 16.9 mg/dL (0.7-1.3); GFR 3.1; MAGNESIUM 2.5 mg/dL (1.8-2.4); TOTAL BILIRUBIN 0.7 mg/dL (0.2-1.0); TOTAL PROTEIN 7.5 g/dL (6.4-8.2)
[2020-04-15 17:57] LABS: ANISOCYTOSIS SLIGHT; PLT ESTIMATE ADEQUATE (ADEQUATE)
[2020-04-15 17:58] LABS: POTASSIUM 6.8 mmol/L (3.5-5.1)
[2020-04-15] MEDS ORDERED: CALCIUM GLUCONATE 1,000 MG/10 ML VIAL. IVP ONE (18:00)
[2020-04-15] MEDS ORDERED: INSULIN REGULAR 100 UNIT/ML 3ML VIAL. IV ONE (18:00)
[2020-04-15] MEDS ORDERED: DEXTROSE 10% IV ONE ×2 (18:00→18:30)
[2020-04-15] MEDS ORDERED: ONDANSETRON PF 4 MG/2 ML VIAL. IV PRN ×2 (18:15→18:45)
[2020-04-15] MEDS ORDERED: DEXTROSE 50% 25 GM / 50ML DISP.SYRIN. IV PRN (18:15)
[2020-04-15] MEDS ORDERED: ALBUTEROL SULFATE 2.5 MG/3 ML NEBU. NEB PRN (18:45)
[2020-04-15] MEDS ORDERED: ZOLPIDEM 5 MG TABLET. PO PRN (18:45)
[2020-04-15] MEDS ORDERED: diphenhydrAMINE 50 MG/ML VIAL IVP PRN (18:45)
[2020-04-15] MEDS ORDERED: LORazepam 0.5 MG TABLET PO PRN (18:45)
[2020-04-15] MEDS ORDERED: guaiFENesin ORAL 200 MG/10 ML LIQUID. PO PRN (18:45)
[2020-04-15] MEDS ORDERED: ACETAMINOPHEN 325 MG TABLET. PO PRN (18:45)
[2020-04-15] MEDS ORDERED: DOCUSATE SODIUM 100 MG CAPSULE. PO PRN (18:45)
[2020-04-15] MEDS ORDERED: IV NORMAL SALINE 1000ML BAG 1,000 ML IV PRN ×2 (19:11)
[2020-04-15] MEDS ORDERED: diphenhydrAMINE 50 MG/ML VIAL IV PRN ×2 (19:15)
[2020-04-15] MEDS ORDERED: ALBUMIN HUMAN 25% 200 ML IV PRN (19:15)
[2020-04-15] MEDS ORDERED: ACETAMINOPHEN 500 MG TABLET PO PRN (19:15)
[2020-04-15] MEDS ORDERED: DIALYSIS PATIENT. MC PRN (19:15)
[2020-04-15] MEDS ORDERED: LABETALOL HCL 200 MG TABLET PO SCH (21:00)
[2020-04-15] MEDS ORDERED: NON FORMULARY ITEM (Ropinirole Hcl 0.5 MG) PO SCH (21:00)
[2020-04-15] MEDS: HEPARIN for SUB-Q USE 5,000 UNIT/ML VIAL. SQ SCH (21:00)
[2020-04-15 23:00] VITALS: BP 203/102
--- NOTE | 2020-04-15 23:00 | NUR ---
Pt admitted to room 519 from dialysis. Pt wanting food, sandwich box given. Pts BP is elevated, Dr. Renee paged for orders. Pt not very forthcoming regarding admission/history information, and states "I don't know" to a lot of questions. Pt doesn't want to be asked a lot of questions and just wants to sleep. Pt states he doesn't know the last time he went to dialysis, and that transport has not been coming to pick him up to go. Call light in reach of pt, explained use, pt vu. Will monitor.
[2020-04-15] MEDS ORDERED: LURA120T PO (23:07)
[2020-04-15] MEDS: traZODone 100 MG TABLET. PO SCH (23:58)
[2020-04-15] MEDS: PRAZOSIN 1 MG CAPSULE. PO SCH (23:58)
[2020-04-15] MEDS: hydrOXYzine 25 MG TABLET PO SCH (23:58)
[2020-04-15] MEDS: rOPINIRole 1 MG TABLET. PO SCH (23:58)
[2020-04-15] MEDS: LABETALOL HCL 200 MG TABLET PO SCH (23:59)
[2020-04-16] VITALS (8 sets, daily range): BP systolic 155–195; BP diastolic 75–94
[2020-04-16] MEDS: LABETALOL 20 MG/4 ML DISP.SYRIN. IVP PRN ×2 (03:40→16:50)
--- NOTE | 2020-04-16 07:30 | PDOC1 ---
History and Physical Date of Service: DOS: DATE: 04/16/20 TIME: 07:17 Chief Complaint: Chief Complain: missed HD and SOB History of Present Illness: HPI: 44-year-old male with a history of ESRD secondary to hypertension who presents with chief complaint of missed dialysis. He states he has not received dialysis treatment in 1 week. He receives dialysis treatments typically on Mondays, Wednesdays, and Fridays. He states he has not gone to dialysis treatment because he has had a lack of transportation. He does note some shortness of breath that is worse with laying flat. Denies chest pain. Does endorse orthopnea. Endorses bendopnea. Denies abdominal pain. Denies nausea or vomiting. Notes his legs seem a little bit more red and tender bilaterally. Denies falls or trauma. Does endorse tobacco abuse. Is unsure of who his piston maker is. States he presented a because of shortness of breath became worse. No other complaints. Past Medical/Surgical History: PMH/PSH: Past Medical History: Anxiety, Asthma, CHF, COPD, Hypertension, ESRD DIALYSIS M/W/F Past Surgical History: LEFT UPPER EXTREMITY FISTULA Allergies: Allergies: Coded Allergies: ibuprofen (Verified Allergy, Intermediate, "Hives", 03/25/20) "Hives" Family History: Family History: Reviewed and none reported Social History: Social History: Current smoker Current Medications: Current Medications Current Medications Calcium Gluconate (Calcium Gluconate) 2,000 mg 1X ONCE IVP Last administered on 04/15/20at 18:25; Start 04/15/20 at 18:00; Stop 04/15/20 at 18:01; Status DC Insulin Human Regular (HumuLIN R VIAL) 5 unit 1X ONCE IV Last administered on 04/15/20at 18:30; Start 04/15/20 at 18:00; Stop 04/15/20 at 18:01; Status DC Dextrose 250 ml @ 0 mls/hr 1X ONCE IV ; Start 04/15/20 at 18:00; Stop 04/15/20 at 18:01; Status Cancel Ondansetron HCl (Zofran) 4 mg PRN Q8HRS PRN IV NAUSEA/VOMITING; Start 04/15/20 at 18:15; Stop 04/15/20 at 21:49; Status DC Insulin Human Lispro (HumaLOG) 0-5 UNITS TIDWMEALS SQ ; Start 04/16/20 at 08:00 Dextrose (Dextrose 50%-Water Syringe) 12.5 gm PRN Q15MIN PRN IV SEE COMMENTS; Start 04/15/20 at 18:15 Dextrose 250 ml @ 0 mls/hr 1X ONCE IV Last administered on 04/15/20at 18:26; Start 04/15/20 at 18:30; Stop 04/15/20 at 18:31; Status DC Ondansetron HCl (Zofran) 4 mg PRN Q4HRS PRN IV NAUSEA/VOMITING; Start 04/15/20 at 18:45 Zolpidem Tartrate (Ambien) 5 mg PRN QHS PRN PO INSOMNIA; Start 04/15/20 at 18:45 Acetaminophen (Tylenol) 650 mg PRN Q4HRS PRN PO TEMP OVER 100.4F OR MILD PAIN; Start 04/15/20 at 18:45 Diphenhydramine HCl (Benadryl) 25 mg PRN Q4HRS PRN IVP ITCHING; Start 04/15/20 at 18:45 Docusate Sodium (Colace) 100 mg PRN BID PRN PO HARD STOOLS; Start 04/15/20 at 18:45 Albuterol Sulfate (Ventolin Neb Soln) 2.5 mg PRN Q4HRS PRN NEB SHORTNESS OF BREATH; Start 04/15/20 at 18:45 Guaifenesin (Robitussin) 200 mg PRN Q4HRS PRN PO COUGH; Start 04/15/20 at 18:45 Lorazepam (Ativan) 0.5 mg PRN Q4HRS PRN PO ANXIETY / AGITATION; Start 04/15/20 at 18:45 Amlodipine Besylate (Norvasc) 10 mg DAILY PO ; Start 04/16/20 at 09:00 Hydroxyzine HCl (Atarax) 25 mg TID PO Last administered on 04/15/20at 23:58; Start 04/15/20 at 21:00 Labetalol HCl (Trandate) 200 mg BID PO Last administered on 04/15/20at 23:59; Start 04/15/20 at 21:00 Labetalol HCl (Trandate) 200 mg BID PO ; Start 04/15/20 at 21:00; Status UNV Paroxetine HCl (Paxil) 20 mg DAILY PO ; Start 04/16/20 at 09:00 Trazodone HCl (Desyrel) 200 mg QHS PO Last administered on 04/15/20at 23:58; Start 04/15/20 at 21:00 Vitamin B Complex/ Vitamin C (Lori-Hugh) 1 tab DAILY PO ; Start 04/16/20 at 09:00 Non-Formulary Medication (Lurasidone Hcl (Latuda)) 120 mg DAILY PO ; Start 04/16/20 at 09:00; Status UNV Prazosin HCl (Minipress) 2 mg QHS PO Last administered on 04/15/20at 23:58; Start 04/16/20 at 00:00 Non-Formulary Medication (Ropinirole Hcl ) 0.5 mg HS PO ; Start 04/15/20 at 21:00; Status UNV Ropinirole HCl (Requip) 1 mg QHS PO Last administered on 04/15/20at 23:58; Start 04/16/20 at 00:00 Sevelamer Carbonate (Renvela) 3,200 mg TIDWMEALS PO ; Start 04/16/20 at 08:00 Morphine Sulfate (Morphine Sulfate) 2 mg PRN Q3HRS PRN IV severe pain; Start 04/15/20 at 18:45 Heparin Sodium (Porcine) (Heparin Sodium) 5,000 unit Q12HR SQ ; Start 04/15/20 at 21:00 Sodium Chloride 1,000 ml @ 1,000 mls/hr Q1H PRN IV hypotension; Start 04/15/20 at 19:11; Stop 04/16/20 at 01:10; Status DC Albumin Human 200 ml @ 200 mls/hr 1X PRN PRN IV Hypotension; Start 04/15/20 at 19:15; Stop 04/16/20 at 01:14; Status DC Acetaminophen (Tylenol) 500 mg 1X PRN PRN PO MILD PAIN / TEMP > 100.3'F; Start 04/15/20 at 19:15; Stop 04/16/20 at 19:14 Diphenhydramine HCl (Benadryl) 25 mg 1X PRN PRN IV ITCHING; Start 04/15/20 at 19:15; Stop 04/16/20 at 19:14 Diphenhydramine HCl (Benadryl) 25 mg 1X PRN PRN IV ITCHING; Start 04/15/20 at 19:15; Stop 04/16/20 at 19:14 Sodium Chloride 1,000 ml @ 400 mls/hr Q2H30M PRN IV PATENCY; Start 04/15/20 at 19:11; Stop 04/16/20 at 07:10; Status DC Info (PHARMACY MONITORING -- do not chart) 1 each PRN DAILY PRN MC SEE COMMENTS; Start 04/15/20 at 19:15 Labetalol HCl (Normodyne Iv Push) 20 mg PRN Q8HRS PRN IVP HYPERTENSION Last administered on 04/16/20at 03:40; Start 04/16/20 at 00:00 Active Scripts Active Labetalol Hcl 200 Mg Tablet 200 Mg PO BID 90 Days Reported Latuda (Lurasidone Hcl) 120 Mg Tablet 1 Tab PO QHS 30 Days Trazodone Hcl 100 Mg Tablet 1 Tab PO QHS Prazosin Hcl 2 Mg Capsule 1 Cap PO QHS Paroxetine Hcl 20 Mg Tablet 1 Tab PO DAILY Latuda (Lurasidone Hcl) 120 Mg Tablet 120 Mg PO DAILY Hydroxyzine Hcl 25 Mg Tablet 1 Tab PO TID Amlodipine Besylate 10 Mg Tablet 10 Mg PO DAILY Ropinirole Hcl 0.5 Mg Tablet 1 Tab PO QHS Renaplex-D Tablet (B,C/Folic/Zinc/Selenometh/D3/E) 1 Each Tablet 1 Tab PO DAILY Renagel (Sevelamer Hcl) 800 Mg Tablet 4 Tab PO TIDAC ROS: Review of Systems Review of System REVIEW OF SYSTEMS: GENERAL: Denies weakness SKIN: No bruising, hair changes or rashes. EYES: No blurred, double or loss of vision. NOSE AND THROAT: No history of nosebleeds, hoarseness or sore throat. HEART: No history of palpitations, chest pain or shortness of breath on exertion. LUNGS: Denies cough, hemoptysis, wheezing or shortness of breath. GASTROINTESTINAL: Denies changes in appetite, nausea, vomiting, diarrhea or constipation. GENITOURINARY: No history of frequency, urgency, hesitancy or nocturia. NEUROLOGIC: Denies history of numbness, tingling, or tremor. PSYCHIATRIC: No history of panic, anxiety or depression. ENDOCRINE: No history of heat or cold intolerance, polyuria or polydipsia. EXTREMITIES: Denies joint pain, pain on walking or stiffness. Physical Exam: Vital Signs: Vital Signs Date Time Temp Pulse Resp B/P (MAP) Pulse Ox O2 Delivery O2 Flow Rate FiO2 04/16/20 04:27 67 195/91 (125) 04/16/20 03:00 98.1 22 94 Room Air 98.1 Physcial Exam: GEN: No apparent distress. Alert and oriented HEENT: Normal cephalic, atraumatic, external auditory canals are patent EYES: Extraocular muscles are intact, pupil are equally round and reactive to light and accommodation MUSCULOSKELETAL: Well developed , well nourished, good range of motion ENDOCRINE: No thyromegaly was palpated LYMPHATICS: No cervical chain or axillary nodes were noted HEMATOPOIETIC: No bruising NECK: Supple, no JVD, no thyromegaly was noted LUNGS: Clear to auscultation in all lung johnson without rhonchi or wheezing HEART: RRR, S!, S2 present. Peripheral pulses intact, no obvious murmurs noted ABDOMEN: Soft, nontender. Positive bowel sounds, no organomegaly, normal bowel sounds EXTREMITIES: Bilateral +2 pitting edema NEUROLOGIC: Normal speech and tone. A&O x 3, moves all extremities, no obvious focal deficits PSYCHIATRIC: Normal affect, normal mood. Stable SKIN: No ulcerations or rashes, good skin turgor, no jaundice VASCULAR: Good capillary refill, neurovascular bundle appears to be intact Labs: Labs: Laboratory Tests Test 04/15/20 17:25 White Blood Count 7.0 x10^3/uL (4.0-11.0) Red Blood Count 3.33 x10^6/uL (4.30-5.70) Hemoglobin 9.4 g/dL (13.0-17.5) Hematocrit 28.3 % (39.0-53.0) Mean Corpuscular Volume 85 fL (79-100) Mean Corpuscular Hemoglobin 28 pg (25-35) Mean Corpuscular Hemoglobin Concent 33 g/dL (31-37) Red Cell Distribution Width 20.2 % (11.5-14.5) Platelet Count 172 x10^3/uL (140-400) Neutrophils (%) (Auto) 74 % (31-73) Lymphocytes (%) (Auto) 9 % (24-48) Monocytes (%) (Auto) 11 % (0-9) Eosinophils (%) (Auto) 5 % (0-3) Basophils (%) (Auto) 0 % (0-3) Neutrophils # (Auto) 5.2 x10^3/uL (1.8-7.7) Lymphocytes # (Auto) 0.6 x10^3/uL (1.0-4.8) Monocytes # (Auto) 0.8 x10^3/uL (0.0-1.1) Eosinophils # (Auto) 0.4 x10^3/uL (0.0-0.7) Basophils # (Auto) 0.0 x10^3/uL (0.0-0.2) Platelet Estimate Adequate (ADEQUATE) Anisocytosis Slight Sodium Level 133 mmol/L (136-145) Potassium Level 6.8 mmol/L (3.5-5.1) Chloride Level 92 mmol/L (98-107) Carbon Dioxide Level 23 mmol/L (21-32) Anion Gap 18 (6-14) Blood Urea Nitrogen 107 mg/dL (8-26) Creatinine 16.9 mg/dL (0.7-1.3) Estimated GFR (Cockcroft-Gault) 3.1 BUN/Creatinine Ratio 6 (6-20) Glucose Level 91 mg/dL (70-99) Calcium Level 8.5 mg/dL (8.5-10.1) Magnesium Level 2.5 mg/dL (1.8-2.4) Total Bilirubin 0.7 mg/dL (0.2-1.0) Aspartate Amino Transf (AST/SGOT) 12 U/L (15-37) Alanine Aminotransferase (ALT/SGPT) 11 U/L (16-63) Alkaline Phosphatase 110 U/L (46-116) Total Protein 7.5 g/dL (6.4-8.2) Albumin 3.1 g/dL (3.4-5.0) Albumin/Globulin Ratio 0.7 (1.0-1.7) Laboratory Tests Test 04/15/20 17:25 White Blood Count 7.0 x10^3/uL (4.0-11.0) Red Blood Count 3.33 x10^6/uL (4.30-5.70) Hemoglobin 9.4 g/dL (13.0-17.5) Hematocrit 28.3 % (39.0-53.0) Mean Corpuscular Volume 85 fL (79-100) Mean Corpuscular Hemoglobin 28 pg (25-35) Mean Corpuscular Hemoglobin Concent 33 g/dL (31-37) Red Cell Distribution Width 20.2 % (11.5-14.5) Platelet Count 172 x10^3/uL (140-400) Neutrophils (%) (Auto) 74 % (31-73) Lymphocytes (%) (Auto) 9 % (24-48) Monocytes (%) (Auto) 11 % (0-9) Eosinophils (%) (Auto) 5 % (0-3) Basophils (%) (Auto) 0 % (0-3) Neutrophils # (Auto) 5.2 x10^3/uL (1.8-7.7) Lymphocytes # (Auto) 0.6 x10^3/uL (1.0-4.8) Monocytes # (Auto) 0.8 x10^3/uL (0.0-1.1) Eosinophils # (Auto) 0.4 x10^3/uL (0.0-0.7) Basophils # (Auto) 0.0 x10^3/uL (0.0-0.2) Platelet Estimate Adequate (ADEQUATE) Anisocytosis Slight Sodium Level 133 mmol/L (136-145) Potassium Level 6.8 mmol/L (3.5-5.1) Chloride Level 92 mmol/L (98-107) Carbon Dioxide Level 23 mmol/L (21-32) Anion Gap 18 (6-14) Blood Urea Nitrogen 107 mg/dL (8-26) Creatinine 16.9 mg/dL (0.7-1.3) Estimated GFR (Cockcroft-Gault) 3.1 BUN/Creatinine Ratio 6 (6-20) Glucose Level 91 mg/dL (70-99) Calcium Level 8.5 mg/dL (8.5-10.1) Magnesium Level 2.5 mg/dL (1.8-2.4) Total Bilirubin 0.7 mg/dL (0.2-1.0) Aspartate Amino Transf (AST/SGOT) 12 U/L (15-37) Alanine Aminotransferase (ALT/SGPT) 11 U/L (16-63) Alkaline Phosphatase 110 U/L (46-116) Total Protein 7.5 g/dL (6.4-8.2) Albumin 3.1 g/dL (3.4-5.0) Albumin/Globulin Ratio 0.7 (1.0-1.7) Images: Images CXR IMPRESSION: 1. Mild interstitial edema. 2. Stable cardiomegaly. Assessment/Plan Assessment/Plan Acute volume overload due to missed dialysis Acute respiratory distress due to volume overload Chronic anemia due to ESRD Acute electrolyte abnormalitieshyperkalemia, uremia Admit to medicine for further management of electrolyte abnormalities and urgent dialysis Nephrology consult Continue with hemodialysis Consider Kayexalate Pending UDS Heparin for DVT prophylaxis Protonix GI prophylaxis ADA diet Full code Discussed with RN and SW Disposition pending nephrology evaluation and dialysis Surrogate decision maker is undesignated at this time Smoking cessation: Total time spent was > 12 minutes in face to face aisha flowers Patient has has not made a decision of when to quit Justifications for Admission Other Justification DANUTA SEPULVEDA MD Apr 16, 2020 07:30
[2020-04-16] MEDS: INSULIN LISPRO 300 UNITS/3 ML VIAL. SQ SCH ×3 (08:00→17:00)
[2020-04-16] MEDS: PARoxetine 20 MG TABLET PO SCH (08:46)
[2020-04-16] MEDS: amLODIPine BESYLATE 10 MG TABLET PO SCH (08:46)
[2020-04-16] MEDS: hydrOXYzine 25 MG TABLET PO SCH ×3 (08:46→20:10)
[2020-04-16] MEDS: FOLIC/VIT B COMP W-C (RENAL) TABLET. PO SCH (08:46)
[2020-04-16] MEDS: SEVELAMER CARBONATE 800 MG TABLET. PO SCH ×3 (08:46→16:49)
[2020-04-16] MEDS: HEPARIN for SUB-Q USE 5,000 UNIT/ML VIAL. SQ SCH ×2 (08:47→20:54)
[2020-04-16] MEDS: LABETALOL HCL 200 MG TABLET PO SCH ×2 (08:49→20:10)
[2020-04-16] MEDS ORDERED: NON FORMULARY ITEM (Lurasidone Hcl (Latuda) 120 MG) PO SCH (09:00)
[2020-04-16] MEDS ORDERED: IV NORMAL SALINE 1000ML BAG 1,000 ML IV PRN ×2 (10:44)
[2020-04-16] MEDS ORDERED: ALBUMIN HUMAN 25% 200 ML IV PRN (10:45)
[2020-04-16] MEDS ORDERED: DIALYSIS PATIENT. MC PRN ×2 (10:45)
[2020-04-16] MEDS ORDERED: diphenhydrAMINE 50 MG/ML VIAL IV PRN (10:45)
--- NOTE | 2020-04-16 12:47 | PDOC2 ---
CONSULT Date of Consult Date of Consult DATE: 04/16/20 TIME: 12:47 Reason for Consult Reason for Consult: ESRD Source Source: Chart review, Patient History of Present Illness Reason for Visit: 44-year-old male with a history of ESRD secondary to hypertension who presents with chief complaint of missed dialysis. He states he has not received dialysis treatment in 1 week. He states he has not gone to dialysis treatment because he has had a lack of transportation. He does note some shortness of breath that is worse with laying flat. Denies chest pain. Denies abdominal pain. Denies nausea or vomiting. Notes his legs seem a little bit more red and tender bilaterally. Continue to smoke . Was Dialyzed emergently last evening Past Medical History Cardiovascular: CHF, HTN Pulmonary: Asthma, Bronchitis GI: Constipation Heme/Onc: Anemia NOS Psych: Bipolar Renal/: Chronic renal failure Endocrine: Hyperparathyroidism Past Surgical History Past Surgical History: Other Family History Family History: Coronary Artery Disease Social History ALCOHOL: none Drugs: None Lives: Alone Current Problem List Problem List Problems Medical Problems: (1) ESRD (end stage renal disease) Status: Acute (2) HTN (hypertension) Status: Acute (3) Hyperkalemia Status: Acute (4) Pulmonary edema Status: Acute (5) Tobacco abuse Status: Acute Current Medications Current Medications Current Medications Calcium Gluconate (Calcium Gluconate) 2,000 mg 1X ONCE IVP Last administered on 04/15/20at 18:25; Start 04/15/20 at 18:00; Stop 04/15/20 at 18:01; Status DC Insulin Human Regular (HumuLIN R VIAL) 5 unit 1X ONCE IV Last administered on 04/15/20at 18:30; Start 04/15/20 at 18:00; Stop 04/15/20 at 18:01; Status DC Dextrose 250 ml @ 0 mls/hr 1X ONCE IV ; Start 04/15/20 at 18:00; Stop 04/15/20 at 18:01; Status Cancel Ondansetron HCl (Zofran) 4 mg PRN Q8HRS PRN IV NAUSEA/VOMITING; Start 04/15/20 at 18:15; Stop 04/15/20 at 21:49; Status DC Insulin Human Lispro (HumaLOG) 0-5 UNITS TIDWMEALS SQ ; Start 04/16/20 at 08:00 Dextrose (Dextrose 50%-Water Syringe) 12.5 gm PRN Q15MIN PRN IV SEE COMMENTS; Start 04/15/20 at 18:15 Dextrose 250 ml @ 0 mls/hr 1X ONCE IV Last administered on 04/15/20at 18:26; Start 04/15/20 at 18:30; Stop 04/15/20 at 18:31; Status DC Ondansetron HCl (Zofran) 4 mg PRN Q4HRS PRN IV NAUSEA/VOMITING Last administered on 04/16/20at 11:22; Start 04/15/20 at 18:45 Zolpidem Tartrate (Ambien) 5 mg PRN QHS PRN PO INSOMNIA; Start 04/15/20 at 18:45 Acetaminophen (Tylenol) 650 mg PRN Q4HRS PRN PO TEMP OVER 100.4F OR MILD PAIN; Start 04/15/20 at 18:45 Diphenhydramine HCl (Benadryl) 25 mg PRN Q4HRS PRN IVP ITCHING; Start 04/15/20 at 18:45 Docusate Sodium (Colace) 100 mg PRN BID PRN PO HARD STOOLS; Start 04/15/20 at 18:45 Albuterol Sulfate (Ventolin Neb Soln) 2.5 mg PRN Q4HRS PRN NEB SHORTNESS OF BREATH; Start 04/15/20 at 18:45 Guaifenesin (Robitussin) 200 mg PRN Q4HRS PRN PO COUGH; Start 04/15/20 at 18:45 Lorazepam (Ativan) 0.5 mg PRN Q4HRS PRN PO ANXIETY / AGITATION; Start 04/15/20 at 18:45 Amlodipine Besylate (Norvasc) 10 mg DAILY PO Last administered on 04/16/20at 08:46; Start 04/16/20 at 09:00 Hydroxyzine HCl (Atarax) 25 mg TID PO Last administered on 04/16/20at 08:46; Start 04/15/20 at 21:00 Labetalol HCl (Trandate) 200 mg BID PO Last administered on 04/16/20at 08:49; Start 04/15/20 at 21:00 Labetalol HCl (Trandate) 200 mg BID PO ; Start 04/15/20 at 21:00; Status UNV Paroxetine HCl (Paxil) 20 mg DAILY PO Last administered on 04/16/20 08:46; Start 04/16/20 at 09:00 Trazodone HCl (Desyrel) 200 mg QHS PO Last administered on 04/15/20at 23:58; Start 04/15/20 at 21:00 Vitamin B Complex/ Vitamin C (Lori-Hugh) 1 tab DAILY PO Last administered on 04/16/20at 08:46; Start 04/16/20 at 09:00 Non-Formulary Medication (Lurasidone Hcl (Latuda)) 120 mg DAILY PO ; Start 04/16/20 at 09:00; Status UNV Prazosin HCl (Minipress) 2 mg QHS PO Last administered on 04/15/20at 23:58; Start 04/16/20 at 00:00 Non-Formulary Medication (Ropinirole Hcl ) 0.5 mg HS PO ; Start 04/15/20 at 21:00; Status UNV Ropinirole HCl (Requip) 1 mg QHS PO Last administered on 04/15/20at 23:58; Start 04/16/20 at 00:00 Sevelamer Carbonate (Renvela) 3,200 mg TIDWMEALS PO Last administered on 04/16/20 08:46; Start 04/16/20 at 08:00 Morphine Sulfate (Morphine Sulfate) 2 mg PRN Q3HRS PRN IV severe pain; Start 04/15/20 at 18:45 Heparin Sodium (Porcine) (Heparin Sodium) 5,000 unit Q12HR SQ ; Start 04/15/20 at 21:00 Sodium Chloride 1,000 ml @ 1,000 mls/hr Q1H PRN IV hypotension; Start 04/15/20 at 19:11; Stop 04/16/20 at 01:10; Status DC Albumin Human 200 ml @ 200 mls/hr 1X PRN PRN IV Hypotension; Start 04/15/20 at 19:15; Stop 04/16/20 at 01:14; Status DC Acetaminophen (Tylenol) 500 mg 1X PRN PRN PO MILD PAIN / TEMP > 100.3'F; Start 04/15/20 at 19:15; Stop 04/16/20 at 19:14 Diphenhydramine HCl (Benadryl) 25 mg 1X PRN PRN IV ITCHING; Start 04/15/20 at 19:15; Stop 04/16/20 at 19:14 Diphenhydramine HCl (Benadryl) 25 mg 1X PRN PRN IV ITCHING; Start 04/15/20 at 19:15; Stop 04/16/20 at 19:14 Sodium Chloride 1,000 ml @ 400 mls/hr Q2H30M PRN IV PATENCY; Start 04/15/20 at 19:11; Stop 04/16/20 at 07:10; Status DC Info (PHARMACY MONITORING -- do not chart) 1 each PRN DAILY PRN MC SEE COMMENTS; Start 04/15/20 at 19:15 Labetalol HCl (Normodyne Iv Push) 20 mg PRN Q8HRS PRN IVP HYPERTENSION Last administered on 04/16/20at 03:40; Start 04/16/20 at 00:00 Sodium Chloride 1,000 ml @ 1,000 mls/hr Q1H PRN IV hypotension; Start 04/16/20 at 10:44; Stop 04/16/20 at 16:43 Albumin Human 200 ml @ 200 mls/hr 1X PRN PRN IV Hypotension; Start 04/16/20 a t 10:45; Stop 04/16/20 at 16:44 Diphenhydramine HCl (Benadryl) 25 mg 1X PRN PRN IV ITCHING; Start 04/16/20 at 10:45; Stop 04/17/20 at 10:44 Sodium Chloride 1,000 ml @ 400 mls/hr Q2H30M PRN IV PATENCY; Start 04/16/20 at 10:44; Stop 04/16/20 at 22:43 Info (PHARMACY MONITORING -- do not chart) 1 each PRN DAILY PRN MC SEE COMMENTS; Start 04/16/20 at 10:45 Info (PHARMACY MONITORING -- do not chart) 1 each PRN DAILY PRN MC SEE COMMENTS; Start 04/16/20 at 10:45; Status UNV Active Scripts Active Labetalol Hcl 200 Mg Tablet 200 Mg PO BID 90 Days Reported Latuda (Lurasidone Hcl) 120 Mg Tablet 1 Tab PO QHS 30 Days Trazodone Hcl 100 Mg Tablet 1 Tab PO QHS Prazosin Hcl 2 Mg Capsule 1 Cap PO QHS Paroxetine Hcl 20 Mg Tablet 1 Tab PO DAILY Latuda (Lurasidone Hcl) 120 Mg Tablet 120 Mg PO DAILY Hydroxyzine Hcl 25 Mg Tablet 1 Tab PO TID Amlodipine Besylate 10 Mg Tablet 10 Mg PO DAILY Ropinirole Hcl 0.5 Mg Tablet 1 Tab PO QHS Renaplex-D Tablet (B,C/Folic/Zinc/Selenometh/D3/E) 1 Each Tablet 1 Tab PO DAILY Renagel (Sevelamer Hcl) 800 Mg Tablet 4 Tab PO TIDAC Allergies Allergies: Coded Allergies: ibuprofen (Verified Allergy, Intermediate, "Hives", 03/25/20) "Hives" ROS Review of System As per HPI, rest of the ROS is negative Physical Exam Physical Exam General: Alert, Oriented X3, Cooperative, No acute distress HEENT: Atraumatic, PERRLA Lungs: Clear to auscultation Heart: Regular rate, Normal S1, Normal S2 Abdomen: Normal bowel sounds, Soft, No tenderness Extremities: No clubbing, No cyanosis, Other (2+ EDEMA) Skin: No rashes, No breakdown Vital Signs Vital Signs Date Time Temp Pulse Resp B/P (MAP) Pulse Ox O2 Delivery O2 Flow Rate FiO2 04/16/20 10:42 97.8 73 18 184/94 (124) 93 Room Air 97.8 04/16/20 07:50 3.0 Assessment & Plan ESRD- MWF Missed HD x 1 week , Dialyzed emergently last evening Seen on Dialysis , tolerating well, continue as ordered , Ranjeet Panchal HyperKalemia - at presentation , emergent Dialysis last evening Again HD today Anemia - [facility] per protocol Labs Labs Laboratory Tests Test 04/15/20 17:25 White Blood Count 7.0 x10^3/uL (4.0-11.0) Red Blood Count 3.33 x10^6/uL (4.30-5.70) Hemoglobin 9.4 g/dL (13.0-17.5) Hematocrit 28.3 % (39.0-53.0) Mean Corpuscular Volume 85 fL (79-100) Mean Corpuscular Hemoglobin 28 pg (25-35) Mean Corpuscular Hemoglobin Concent 33 g/dL (31-37) Red Cell Distribution Width 20.2 % (11.5-14.5) Platelet Count 172 x10^3/uL (140-400) Neutrophils (%) (Auto) 74 % (31-73) Lymphocytes (%) (Auto) 9 % (24-48) Monocytes (%) (Auto) 11 % (0-9) Eosinophils (%) (Auto) 5 % (0-3) Basophils (%) (Auto) 0 % (0-3) Neutrophils # (Auto) 5.2 x10^3/uL (1.8-7.7) Lymphocytes # (Auto) 0.6 x10^3/uL (1.0-4.8) Monocytes # (Auto) 0.8 x10^3/uL (0.0-1.1) Eosinophils # (Auto) 0.4 x10^3/uL (0.0-0.7) Basophils # (Auto) 0.0 x10^3/uL (0.0-0.2) Platelet Estimate Adequate (ADEQUATE) Anisocytosis Slight Sodium Level 133 mmol/L (136-145) Potassium Level 6.8 mmol/L (3.5-5.1) Chloride Level 92 mmol/L (98-107) Carbon Dioxide Level 23 mmol/L (21-32) Anion Gap 18 (6-14) Blood Urea Nitrogen 107 mg/dL (8-26) Creatinine 16.9 mg/dL (0.7-1.3) Estimated GFR (Cockcroft-Gault) 3.1 BUN/Creatinine Ratio 6 (6-20) Glucose Level 91 mg/dL (70-99) Calcium Level 8.5 mg/dL (8.5-10.1) Magnesium Level 2.5 mg/dL (1.8-2.4) Total Bilirubin 0.7 mg/dL (0.2-1.0) Aspartate Amino Transf (AST/SGOT) 12 U/L (15-37) Alanine Aminotransferase (ALT/SGPT) 11 U/L (16-63) Alkaline Phosphatase 110 U/L (46-116) Total Protein 7.5 g/dL (6.4-8.2) Albumin 3.1 g/dL (3.4-5.0) Albumin/Globulin Ratio 0.7 (1.0-1.7) Laboratory Tests Test 04/15/20 17:25 White Blood Count 7.0 x10^3/uL (4.0-11.0) Red Blood Count 3.33 x10^6/uL (4.30-5.70) Hemoglobin 9.4 g/dL (13.0-17.5) Hematocrit 28.3 % (39.0-53.0) Mean Corpuscular Volume 85 fL (79-100) Mean Corpuscular Hemoglobin 28 pg (25-35) Mean Corpuscular Hemoglobin Concent 33 g/dL (31-37) Red Cell Distribution Width 20.2 % (11.5-14.5) Platelet Count 172 x10^3/uL (140-400) Neutrophils (%) (Auto) 74 % (31-73) Lymphocytes (%) (Auto) 9 % (24-48) Monocytes (%) (Auto) 11 % (0-9) Eosinophils (%) (Auto) 5 % (0-3) Basophils (%) (Auto) 0 % (0-3) Neutrophils # (Auto) 5.2 x10^3/uL (1.8-7.7) Lymphocytes # (Auto) 0.6 x10^3/uL (1.0-4.8) Monocytes # (Auto) 0.8 x10^3/uL (0.0-1.1) Eosinophils # (Auto) 0.4 x10^3/uL (0.0-0.7) Basophils # (Auto) 0.0 x10^3/uL (0.0-0.2) Platelet Estimate Adequate (ADEQUATE) Anisocytosis Slight Sodium Level 133 mmol/L (136-145) Potassium Level 6.8 mmol/L (3.5-5.1) Chloride Level 92 mmol/L (98-107) Carbon Dioxide Level 23 mmol/L (21-32) Anion Gap 18 (6-14) Blood Urea Nitrogen 107 mg/dL (8-26) Creatinine 16.9 mg/dL (0.7-1.3) Estimated GFR (Cockcroft-Gault) 3.1 BUN/Creatinine Ratio 6 (6-20) Glucose Level 91 mg/dL (70-99) Calcium Level 8.5 mg/dL (8.5-10.1) Magnesium Level 2.5 mg/dL (1.8-2.4) Total Bilirubin 0.7 mg/dL (0.2-1.0) Aspartate Amino Transf (AST/SGOT) 12 U/L (15-37) Alanine Aminotransferase (ALT/SGPT) 11 U/L (16-63) Alkaline Phosphatase 110 U/L (46-116) Total Protein 7.5 g/dL (6.4-8.2) Albumin 3.1 g/dL (3.4-5.0) Albumin/Globulin Ratio 0.7 (1.0-1.7) Review All relevant outside records, renal labs, imaging studies, telemetry/EKG's were reviewed. Images Images 1. Mild interstitial edema. 2. Stable cardiomegaly. LESLY RODRIGUEZ MD Apr 16, 2020 12:47
[2020-04-16] MEDS: MORPHINE SULFATE 2 MG/ML VIAL. IV PRN ×2 (14:30→18:33)
[2020-04-16] MEDS: rOPINIRole 1 MG TABLET. PO SCH (20:09)
[2020-04-16] MEDS: PRAZOSIN 1 MG CAPSULE. PO SCH (20:09)
[2020-04-16] MEDS: traZODone 100 MG TABLET. PO SCH (20:11)
--- NOTE | 2020-04-16 20:54 | NUR ---
pt just took 100 mg of trazodone at bed time.
--- NOTE | 2020-04-17 05:47 | EKG ---
[facility] [address] [place] [address] Test Date: 2020-04-15 Test Time: 16:43:00 Pat Name: SALLY ROPER Department: Room: Gender: M Doctor Podiatric Medicine: : 1975 Requested By: DAVINA DSOUZA Order Number: [id number] Reading MD: Measurements Intervals [place] Rate: 64 P: 16 [place]: 192 QRS: -41 QRSD: 104 T: 95 QT: 418 QTc: 435 Interpretive Statements SINUS RHYTHM ABNORMAL LEFT AXIS DEVIATION R-S TRANSITION ZONE IN V LEADS DISPLACED TO THE LEFT LEFT ANTERIOR FASCICULAR BLOCK T ABNORMALITY IN HIGH LATERAL LEADS ABNORMAL ECG RI6.02 No previous ECG available for comparison
[2020-04-17 07:00] VITALS: BP 115/37
[2020-04-17] MEDS: INSULIN LISPRO 300 UNITS/3 ML VIAL. SQ SCH ×3 (08:00→16:32)
[2020-04-17] MEDS: SEVELAMER CARBONATE 800 MG TABLET. PO SCH ×3 (09:43→17:38)
[2020-04-17] MEDS: FOLIC/VIT B COMP W-C (RENAL) TABLET. PO SCH (09:43)
[2020-04-17] MEDS: amLODIPine BESYLATE 10 MG TABLET PO SCH (09:43)
[2020-04-17] MEDS: PARoxetine 20 MG TABLET PO SCH (09:43)
[2020-04-17] MEDS: hydrOXYzine 25 MG TABLET PO SCH ×3 (09:43→21:55)
[2020-04-17] MEDS: HEPARIN for SUB-Q USE 5,000 UNIT/ML VIAL. SQ SCH ×2 (09:44→22:03)
[2020-04-17] MEDS: LABETALOL HCL 200 MG TABLET PO SCH ×2 (09:44→21:56)
[2020-04-17 11:00] VITALS: BP 166/87
--- NOTE | 2020-04-17 11:23 | PDOC ---
[employer] PROGRESS NOTE Date of Service DOS: DATE: 04/17/20 TIME: 11:18 Chief Complaint Chief Complaint Acute volume overload due to missed dialysis Acute respiratory distress due to volume overload Chronic anemia due to ESRD Acute electrolyte abnormalitieshyperkalemia, uremia Concern for polysubstance abuse Bilateral lower extremity edema complicated by left lower extremity cellulitis Admit to medicine for further management of electrolyte abnormalities and urgent dialysis Nephrology consult Continue with hemodialysis Consider Kayexalate Pending UDS Will start on doxycycline 100 mg twice daily for left lower extremity cellulitis Wound care consult for blister in the left lower extremity Consider ID consult if patient is not improving Heparin for DVT prophylaxis Protonix GI prophylaxis ADA diet Full code Discussed with RN and SW Disposition pending nephrology evaluation and dialysis Surrogate decision maker is undesignated at this time History of Present Illness History of Present Illness 04/17/2020 No acute events overnight. Patient tolerated dialysis well with 4.5 L removed. Nurse reported that patient is producing little urine and is difficult to obtain a urine drug screen at this time. No Lasix ordered at this time. Nurse also reported left lower extremity has some increasing redness and possible concerning area of a wound on the posterior calf. The site was examined by me and there was no acute need for IV antibiotics or wound care. However wound care consult was ordered mainly for blistering of the ankle portion and doxycycline as ordered for concerning developing cellulitis. Patient's chart, labs, images were reviewed and discussed with RN 44-year-old male with a history of ESRD secondary to hypertension who presents with chief complaint of missed dialysis. He states he has not received dialysis treatment in 1 week. He receives dialysis treatments typically on Mondays, Wednesdays, and Fridays. He states he has not gone to dialysis treatment because he has had a lack of transportation. He does note some shortness of breath that is worse with laying flat. Denies chest pain. Does endorse orthopnea. Endorses bendopnea. Denies abdominal pain. Denies nausea or vomiting. Notes his legs seem a little bit more red and tender bilaterally. Denies falls or trauma. Does endorse tobacco abuse. 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 States he presented a because of shortness of breath became worse. No other complaints. Vitals/I&O Vitals/I&O: Vital Signs Date Time Temp Pulse Resp B/P (MAP) Pulse Ox O2 Delivery O2 Flow Rate FiO2 04/17/20 09:44 69 162/74 04/17/20 08:05 Nasal Cannula 3.0 04/17/20 07:00 98.5 16 96 98.5 I & O 04/16/20 04/16/20 04/17/20 15:00 23:00 07:00 Intake Total 600 ml Output Total 0 ml Balance 600 ml 0 ml Physical Exam Physical Exam: GEN: No apparent distress. Alert and oriented HEENT: Normal cephalic, atraumatic, external auditory canals are patent NECK: Supple, no JVD, no thyromegaly was noted LUNGS: Bilateral clear HEART: RRR, S1, S2 present. Peripheral pulses intact, no obvious murmurs noted ABDOMEN: Soft, nontender. Positive bowel sounds, no organomegaly, normal bowel sounds EXTREMITIES: Bilateral lower extremity +2 pitting edema. Left lower extremity more erythematous than the right. Some blistering in the anterior ankle portion. Painted toenails. Extremely soiled fingernails of the right hand Lungs: Clear Assessment and Plan Assessmemt and Plan Problems Medical Problems: (1) ESRD (end stage renal disease) Status: Acute (2) HTN (hypertension) Status: Acute (3) Hyperkalemia Status: Acute (4) Pulmonary edema Status: Acute (5) Tobacco abuse Status: Acute Comment Review of Relevant I have reviewed the following items [place] (where applicable) has been applied. Justifications for Admission Other Justification DANUTA SEPULVEDA MD Apr 17, 2020 11:23
[2020-04-17] MEDS: DOXYCYCLINE HYCLATE 100 MG TABLET PO SCH ×2 (12:47→21:55)
[2020-04-17 13:17] LABS: BASO # 0.1 x10^3/uL (0.0-0.2); BASO % 1 % (0-3); EOS # 0.2 x10^3/uL (0.0-0.7); EOS % 3 % (0-3); HEMATOCRIT 30.7 % (39.0-53.0); HEMOGLOBIN 9.9 g/dL (13.0-17.5); LYMPH # 0.3 x10^3/uL (1.0-4.8); LYMPH % 6 % (24-48); MEAN CORPUSCULAR HEMOGLOBIN 28 pg (25-35); MEAN CORPUSCULAR HGB CONC 32 g/dL (31-37); MEAN CORPUSCULAR VOLUME 86 fL (79-100); MONO # 0.6 x10^3/uL (0.0-1.1); MONO % 10 % (0-9); NEUT # 4.5 x10^3/uL (1.8-7.7); NEUT % 79 % (31-73); PLATELET COUNT 148 x10^3/uL (140-400); RED BLOOD COUNT 3.57 x10^6/uL (4.30-5.70); RED CELL DISTRIBUTION WIDTH 20.7 % (11.5-14.5); WHITE BLOOD COUNT 5.7 x10^3/uL (4.0-11.0)
[2020-04-17 13:34] LABS: CALCIUM 8.9 mg/dL (8.5-10.1); CREATININE 7.6 mg/dL (0.7-1.3); GFR 7.8; MAGNESIUM 2.3 mg/dL (1.8-2.4); PHOSPHORUS 6.5 mg/dL (2.6-4.7); POTASSIUM 4.5 mmol/L (3.5-5.1)
[2020-04-17 14:11] LABS: % BANDS 1 % (0-9); % BASOS 2 % (0-3); % EOS 3 % (0-5); % LYMPHS 3 % (24-48); % MONOS 10 % (0-10); % SEGS 81 % (35-66); PLT ESTIMATE ADEQUATE (ADEQUATE)
[2020-04-17 14:12] LABS: ANISOCYTOSIS MOD
--- NOTE | 2020-04-17 14:32 | PDOC ---
DATE OF SERVICE DATE: 04/17/20 TIME: 14:29 SUBJECTIVE ROS stable, no complaints OBJECTIVE Vital Signs Vital Signs Date Time Temp Pulse Resp B/P (MAP) Pulse Ox O2 Delivery O2 Flow Rate FiO2 04/17/20 11:00 97.8 67 16 166/87 (113) 93 Room Air 97.8 04/17/20 08:05 3.0 I & 0 Intake and Output 04/17/20 07:00 Intake Total 600 ml Output Total 0 ml Balance 600 ml Intake Oral 600 ml Output Urine Total 0 ml # Voids 1 PHYSICAL EXAM Physical Exam General: Alert, Oriented X3, Cooperative, No acute distress HEENT: Atraumatic, PERRLA Lungs: Clear to auscultation Heart: Regular rate, Normal S1, Normal S2 Abdomen: Normal bowel sounds, Soft, No tenderness Extremities: No clubbing, No cyanosis, Other (2+ EDEMA) Skin: No rashes, No breakdown Vital Signs DIAGNOSIS/ASSESSMENT Assessment & Plan ESRD- MWF Missed HD x 1 week , Dialyzed emergently on saturday and again on Sat Currently No indication for HD HyperKalemia - at presentation , emergent Dialysis Resolved Anemia -n [facility] HTN BP not at goal, Non compliance Antihypertensives COMMENT/RELEVANT DATA Meds Current Medications Medications (Trade) Dose Ordered Sig/Michel Start Time Stop Time Status Last Admin Dose Admin Acetaminophen (Tylenol) 500 mg 1X PRN PRN 04/15/20 19:15 04/16/20 19:14 DC 04/16/20 14:30 500 MG Albumin Human 200 ml @ 200 mls/hr 1X PRN PRN 04/16/20 10:45 04/16/20 16:44 DC Albuterol Sulfate (Ventolin Neb Soln) 2.5 mg PRN Q4HRS PRN 04/15/20 18:45 Amlodipine Besylate (Norvasc) 10 mg DAILY 04/16/20 09:00 04/17/20 09:43 10 MG Calcium Gluconate (Calcium Gluconate) 2,000 mg 1X ONCE 04/15/20 18:00 04/15/20 18:01 DC 04/15/20 18:25 2,000 MG Darbepoetin Robles (ARANESP for DIALYSIS PTS) 60 mcg WEEKLYHS 04/17/20 21:00 Dextrose 250 ml @ 0 mls/hr 1X ONCE 04/15/20 18:30 04/15/20 18:31 DC 04/15/20 18:26 999 MLS/HR Dextrose (Dextrose 50%-Water Syringe) 12.5 gm PRN Q15MIN PRN 04/15/20 18:15 Diphenhydramine HCl (Benadryl) 25 mg 1X PRN PRN 04/16/20 10:45 04/16/20 19:00 DC Docusate Sodium (Colace) 100 mg PRN BID PRN 04/15/20 18:45 Doxycycline Hyclate (Vibra-Tab) 100 mg BID 04/17/20 11:30 04/17/20 12:47 100 MG Guaifenesin (Robitussin) 200 mg PRN Q4HRS PRN 04/15/20 18:45 Heparin Sodium (Porcine) (Heparin Sodium) 5,000 unit Q12HR 04/15/20 21:00 Hydroxyzine HCl (Atarax) 25 mg TID 04/15/20 21:00 04/17/20 09:43 25 MG Info (PHARMACY MONITORING -- do not chart) 1 each PRN DAILY PRN 04/16/20 10:45 UNV Insulin Human Lispro (HumaLOG) 0-5 UNITS TIDWMEALS 04/16/20 08:00 Insulin Human Regular (HumuLIN R VIAL) 5 unit 1X ONCE 04/15/20 18:00 04/15/20 18:01 DC 04/15/20 18:30 5 UNIT Labetalol HCl (Normodyne Iv Push) 20 mg PRN Q8HRS PRN 04/16/20 00:00 04/16/20 16:50 20 MG Labetalol HCl (Trandate) 200 mg BID 04/15/20 21:00 UNV Lorazepam (Ativan) 0.5 mg PRN Q4HRS PRN 04/15/20 18:45 Morphine Sulfate (Morphine Sulfate) 2 mg PRN Q3HRS PRN 04/15/20 18:45 04/16/20 18:33 2 MG Non-Formulary Medication (Lurasidone Hcl (Latuda)) 120 mg DAILY 04/16/20 09:00 04/17/20 09:36 DC Non-Formulary Medication (Ropinirole Hcl ) 0.5 mg HS 04/15/20 21:00 UNV Ondansetron HCl (Zofran) 4 mg PRN Q4HRS PRN 04/15/20 18:45 04/16/20 11:22 4 MG Paroxetine HCl (Paxil) 20 mg DAILY 04/16/20 09:00 04/17/20 09:43 20 MG Prazosin HCl (Minipress) 2 mg QHS 04/16/20 00:00 04/16/20 20:09 2 MG Ropinirole HCl (Requip) 1 mg QHS 04/16/20 00:00 04/16/20 20:09 1 MG Sevelamer Carbonate (Renvela) 3,200 mg TIDWMEALS 04/16/20 08:00 04/17/20 12:47 3,200 MG Sodium Chloride 1,000 ml @ 400 mls/hr Q2H30M PRN 04/16/20 10:44 04/16/20 22:43 DC Trazodone HCl (Desyrel) 200 mg QHS 04/15/20 21:00 04/16/20 20:11 100 MG Vitamin B Complex/ Vitamin C (Lori-Hugh) 1 tab DAILY 04/16/20 09:00 04/17/20 09:43 1 TAB Zolpidem Tartrate (Ambien) 5 mg PRN QHS PRN 04/15/20 18:45 Lab Laboratory Tests Test 04/17/20 12:36 White Blood Count 5.7 x10^3/uL (4.0-11.0) Red Blood Count 3.57 x10^6/uL (4.30-5.70) Hemoglobin 9.9 g/dL (13.0-17.5) Hematocrit 30.7 % (39.0-53.0) Mean Corpuscular Volume 86 fL (79-100) Mean Corpuscular Hemoglobin 28 pg (25-35) Mean Corpuscular Hemoglobin Concent 32 g/dL (31-37) Red Cell Distribution Width 20.7 % (11.5-14.5) Platelet Count 148 x10^3/uL (140-400) Neutrophils (%) (Auto) 79 % (31-73) Lymphocytes (%) (Auto) 6 % (24-48) Monocytes (%) (Auto) 10 % (0-9) Eosinophils (%) (Auto) 3 % (0-3) Basophils (%) (Auto) 1 % (0-3) Neutrophils # (Auto) 4.5 x10^3/uL (1.8-7.7) Lymphocytes # (Auto) 0.3 x10^3/uL (1.0-4.8) Monocytes # (Auto) 0.6 x10^3/uL (0.0-1.1) Eosinophils # (Auto) 0.2 x10^3/uL (0.0-0.7) Basophils # (Auto) 0.1 x10^3/uL (0.0-0.2) Segmented Neutrophils % 81 % (35-66) Band Neutrophils % 1 % (0-9) Lymphocytes % 3 % (24-48) Monocytes % 10 % (0-10) Eosinophils % 3 % (0-5) Basophils % 2 % (0-3) Platelet Estimate Adequate (ADEQUATE) Anisocytosis Mod Sodium Level 139 mmol/L (136-145) Potassium Level 4.5 mmol/L (3.5-5.1) Chloride Level 97 mmol/L (98-107) Carbon Dioxide Level 32 mmol/L (21-32) Anion Gap 10 (6-14) Blood Urea Nitrogen 32 mg/dL (8-26) Creatinine 7.6 mg/dL (0.7-1.3) Estimated GFR (Cockcroft-Gault) 7.8 Glucose Level 130 mg/dL (70-99) Calcium Level 8.9 mg/dL (8.5-10.1) Phosphorus Level 6.5 mg/dL (2.6-4.7) Magnesium Level 2.3 mg/dL (1.8-2.4) Results All relevant outside records, renal labs, imaging studies, telemetry/EKG's were reviewed. Justicifation of Admission Dx: Justifications for Admission: Justification of Admission Dx: Yes Chronic Renal Failure: Electrolyte Abnormality LESLY RODRIGUEZ MD Apr 17, 2020 14:32
[2020-04-17 15:30] VITALS: BP 144/92
[2020-04-17] MEDS: MORPHINE SULFATE 2 MG/ML VIAL. IV PRN (15:43)
[2020-04-17 19:00] VITALS: BP 146/75
[2020-04-17] MEDS ORDERED: DARBEPOETIN ALFA 60 MCG/0.3 ML DISP.SYRIN. SQ SCH (21:00)
[2020-04-17] MEDS: traZODone 100 MG TABLET. PO SCH (21:55)
[2020-04-17] MEDS: rOPINIRole 1 MG TABLET. PO SCH (21:55)
[2020-04-17] MEDS: PRAZOSIN 1 MG CAPSULE. PO SCH (21:56)
[2020-04-17 23:06] VITALS: BP 169/90
[2020-04-18] VITALS (7 sets, daily range): BP systolic 120–189; BP diastolic 80–97
[2020-04-18] MEDS: MORPHINE SULFATE 2 MG/ML VIAL. IV PRN ×3 (03:27→18:36)
[2020-04-18] MEDS: PARoxetine 20 MG TABLET PO SCH (03:34)
[2020-04-18] MEDS ORDERED: traZODone 100 MG TABLET. PO SCH ×2 (05:30→21:00)
[2020-04-18] MEDS: INSULIN LISPRO 300 UNITS/3 ML VIAL. SQ SCH ×3 (08:00→17:00)
[2020-04-18] MEDS: HEPARIN for SUB-Q USE 5,000 UNIT/ML VIAL. SQ SCH ×2 (09:00→20:56)
[2020-04-18] MEDS: LABETALOL HCL 200 MG TABLET PO SCH ×2 (09:07→20:53)
[2020-04-18] MEDS: DOXYCYCLINE HYCLATE 100 MG TABLET PO SCH ×2 (09:07→20:52)
[2020-04-18] MEDS: hydrOXYzine 25 MG TABLET PO SCH ×3 (09:07→20:53)
[2020-04-18] MEDS: amLODIPine BESYLATE 10 MG TABLET PO SCH (09:07)
[2020-04-18] MEDS: SEVELAMER CARBONATE 800 MG TABLET. PO SCH ×3 (09:07→20:52)
--- NOTE | 2020-04-18 09:12 | PDOC ---
[facility] [facility] PROGRESS NOTE Date of Service DOS: DATE: 04/18/20 TIME: 09:10 Chief Complaint Chief Complaint Acute volume overload due to missed dialysis Acute respiratory distress due to volume overload Chronic anemia due to ESRD Acute electrolyte abnormalitieshyperkalemia, uremia Concern for polysubstance abuse Bilateral lower extremity edema complicated by left lower extremity cellulitis Admit to medicine for further management of electrolyte abnormalities and urgent dialysis Nephrology consult Continue with hemodialysis Consider Kayexalate Pending UDS Will start on doxycycline 100 mg twice daily for left lower extremity cellulitis Wound care consult for blister in the left lower extremity Consider ID consult if patient is not improving Heparin for DVT prophylaxis Protonix GI prophylaxis ADA diet Full code Discussed with RN and SW Disposition pending nephrology evaluation and dialysis Surrogate decision maker is undesignated at this time History of Present Illness History of Present Illness 44-year-old male with a history of ESRD secondary to hypertension who presents with chief complaint of missed dialysis. He states he has not received dialysis treatment in 1 week. He receives dialysis treatments typically on Mondays, Wednesdays, and Fridays. He states he has not gone to dialysis treatment because he has had a lack of transportation. He does note some shortness of breath that is worse with laying flat. Denies chest pain. Does endorse orthopnea. Endorses bendopnea. Denies abdominal pain. Denies nausea or vomiting. Notes his legs seem a little bit more red and tender bilaterally. Denies falls or trauma. Does endorse tobacco abuse. Is unsure of who his reiki practitioner is. States he presented a because of shortness of breath became worse. No other complaints. 04/17/2020 No acute events overnight. Patient tolerated dialysis well with 4.5 L removed. Nurse reported that patient is producing little urine and is difficult to obtain a urine drug screen at this time. No Lasix ordered at this time. Nurse also reported left lower extremity has some increasing redness and possible concerning area of a wound on the posterior calf. The site was examined by me and there was no acute need for IV antibiotics or wound care. However wound care consult was ordered mainly for blistering of the ankle portion and doxycycline as ordered for concerning developing cellulitis. Patient's chart, labs, images were reviewed and discussed with RN 04/18/2020 Patient evaluated bedside. No acute events overnight. He is to have repeat dialysis today. He was treated with wound care for his cellulitis. Discussed with RN, may discharge today or tomorrow. Vitals/I&O Vitals/I&O: Vital Signs Date Time Temp Pulse Resp B/P (MAP) Pulse Ox O2 Delivery O2 Flow Rate FiO2 04/18/20 09:07 Room Air 04/18/20 09:07 63 179/89 04/18/20 07:00 98.0 18 94 98.0 04/17/20 16:30 3.0 I & O 04/17/20 04/17/20 04/18/20 14:59 22:59 06:59 Output Total 0 ml Balance 0 ml Physical Exam Physical Exam: GEN: No apparent distress. Alert and oriented HEENT: Normal cephalic, atraumatic, external auditory canals are patent NECK: Supple, no JVD, no thyromegaly was noted LUNGS: Bilateral clear HEART: RRR, S1, S2 present. Peripheral pulses intact, no obvious murmurs noted ABDOMEN: Soft, nontender. Positive bowel sounds, no organomegaly, normal bowel sounds EXTREMITIES: Bilateral lower extremity +2 pitting edema. Left lower extremity more erythematous than the right. Some blistering in the anterior ankle portion. Painted toenails. Extremely soiled fingernails of the right hand Lungs: Clear Labs Labs: Laboratory Tests Test 04/17/20 12:36 White Blood Count 5.7 x10^3/uL (4.0-11.0) Red Blood Count 3.57 x10^6/uL (4.30-5.70) Hemoglobin 9.9 g/dL (13.0-17.5) Hematocrit 30.7 % (39.0-53.0) Mean Corpuscular Volume 86 fL (79-100) Mean Corpuscular Hemoglobin 28 pg (25-35) Mean Corpuscular Hemoglobin Concent 32 g/dL (31-37) Red Cell Distribution Width 20.7 % (11.5-14.5) Platelet Count 148 x10^3/uL (140-400) Neutrophils (%) (Auto) 79 % (31-73) Lymphocytes (%) (Auto) 6 % (24-48) Monocytes (%) (Auto) 10 % (0-9) Eosinophils (%) (Auto) 3 % (0-3) Basophils (%) (Auto) 1 % (0-3) Neutrophils # (Auto) 4.5 x10^3/uL (1.8-7.7) Lymphocytes # (Auto) 0.3 x10^3/uL (1.0-4.8) Monocytes # (Auto) 0.6 x10^3/uL (0.0-1.1) Eosinophils # (Auto) 0.2 x10^3/uL (0.0-0.7) Basophils # (Auto) 0.1 x10^3/uL (0.0-0.2) Segmented Neutrophils % 81 % (35-66) Band Neutrophils % 1 % (0-9) Lymphocytes % 3 % (24-48) Monocytes % 10 % (0-10) Eosinophils % 3 % (0-5) Basophils % 2 % (0-3) Platelet Estimate Adequate (ADEQUATE) Anisocytosis Mod Sodium Level 139 mmol/L (136-145) Potassium Level 4.5 mmol/L (3.5-5.1) Chloride Level 97 mmol/L (98-107) Carbon Dioxide Level 32 mmol/L (21-32) Anion Gap 10 (6-14) Blood Urea Nitrogen 32 mg/dL (8-26) Creatinine 7.6 mg/dL (0.7-1.3) Estimated GFR (Cockcroft-Gault) 7.8 Glucose Level 130 mg/dL (70-99) Calcium Level 8.9 mg/dL (8.5-10.1) Phosphorus Level 6.5 mg/dL (2.6-4.7) Magnesium Level 2.3 mg/dL (1.8-2.4) Review of Systems Review of Systems: Denies fever, denies chest pain, denies shortness of breath. Assessment and Plan Assessmemt and Plan Problems Medical Problems: (1) ESRD (end stage renal disease) Status: Acute (2) HTN (hypertension) Status: Acute (3) Hyperkalemia Status: Acute (4) Pulmonary edema Status: Acute (5) Tobacco abuse Status: Acute Comment Review of Relevant I have reviewed the following items [place] (where applicable) has been applied. Medications: Current Medications Medications (Trade) Dose Ordered Sig/Michel Route PRN Reason Start Time Stop Time Status Last Admin Dose Admin Darbepoetin Robles (ARANESP for DIALYSIS PTS) 60 mcg WEEKLYHS SQ 04/17/20 21:00 04/17/20 21:58 Doxycycline Hyclate (Vibra-Tab) 100 mg BID PO 04/17/20 11:30 04/18/20 09:07 Justifications for Admission Other Justification PHYLLIS MORALES MD Apr 18, 2020 09:12
[2020-04-18] MEDS: LABETALOL 20 MG/4 ML DISP.SYRIN. IVP PRN (12:03)
[2020-04-18] MEDS: FOLIC/VIT B COMP W-C (RENAL) TABLET. PO SCH (12:04)
[2020-04-18 13:33] LABS: GFR 6.4; POTASSIUM 4.9 mmol/L (3.5-5.1)
--- NOTE | 2020-04-18 14:12 | PDOC ---
Renal-Progress Notes Subjective Notes Notes NO NEW COMPLAINTS History of Present Illness Hx of present illness STABLE Vitals Vitals Vital Signs Date Time Temp Pulse Resp B/P (MAP) Pulse Ox O2 Delivery O2 Flow Rate FiO2 04/18/20 12:03 63 189/96 04/18/20 12:01 Room Air 3.0 04/18/20 10:43 98.3 18 94 98.3 Weight Weight [ ] I.O. Intake and Output Intake and Output 04/18/20 07:00 Output Total 0 ml Balance 0 ml Output Urine Total 0 ml Labs Labs Laboratory Tests Test 04/18/20 12:37 Sodium Level 139 mmol/L (136-145) Potassium Level 4.9 mmol/L (3.5-5.1) Chloride Level 98 mmol/L (98-107) Carbon Dioxide Level 33 mmol/L (21-32) Anion Gap 8 (6-14) Blood Urea Nitrogen 43 mg/dL (8-26) Creatinine 9.0 mg/dL (0.7-1.3) Estimated GFR (Cockcroft-Gault) 6.4 Glucose Level 111 mg/dL (70-99) Calcium Level 9.0 mg/dL (8.5-10.1) Review of Systems Constitutional: yes: weakness, alert, oriented Ears/Nose/Throat: Yes: no symptom reported Eyes: Yes: no symptom reported Pulmonary: Yes dyspnea Cardiovascular: Yes no symptom reported Gastrointestional: Yes: no symptom reported Genitourinary: Yes: no symptom reported Musculoskeletal: Yes: no symptom reported Skin: Yes no symptom reported Psychiatric/Neurological: Yes: no symptom reported Endocrine: Yes: no symptom reported Physical Exam General Appearance: no apparent distress Skin: warm Respiratory: bilateral CTA Heart: S1S2 Abdomen: soft, bowel sounds present Genitourinary: bladder flat Extremities: pulses present Neurology: alert, oriented Assessment Assessment IMP ESRD CHF-DIASTOLIC NON COMPLIANCE ACUTE RESP FALURE ANEMIA SUBSTANCE ABUSE LLE CELLULITIS PLAN HD TODAY UF TO DW CONT VICTOR MANUEL ANTIBIOTICS NEEDED ENC COMPLIANCE ROZ IZAGUIRRE MD Apr 18, 2020 14:12
[2020-04-18] MEDS ORDERED: IV NORMAL SALINE 1000ML BAG 1,000 ML IV PRN ×2 (14:46)
[2020-04-18] MEDS ORDERED: ALBUMIN HUMAN 25% 200 ML IV PRN (15:00)
[2020-04-18] MEDS ORDERED: DIALYSIS PATIENT. MC PRN ×2 (15:00)
--- NOTE | 2020-04-18 15:26 | NUR ---
SW following. Spoke with RN and reviewed chart. Pt from home. MARIA ISABEL met with pt who stated he has not been making it to dialysis as his transportation is not coming. Pt stated he has transportation arranged with his [facility] Medicaid and that he calls the number on the back of the card when transportation does not arrive. Pt currently on room air and IV Dextrose. Pt stated he does out-patient dialysis on MWF @ 1345 with [facility], , (fax). MARIA ISABEL called and spoke with facility social media job titles Renata who confirmed pt has a standing order with [employer] for Medicaid transportation. MARIA ISABEL did also provide pt with a [employer] application. Renata stated that pt is at risk for homelessness. MARIA ISABEL provided pt with contact information for Tim Campo with [facility]. Pt will likely discharge tomorrow, 04/19 self-care. Pt dialyzing today. MARIA ISABEL following.
--- NOTE | 2020-04-18 16:08 | NUR ---
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 Wound cleansed and assessed. Will consult our wound care physician to assess patient tomorrow. Treatment Recommendations/Plan: skin prep to nikkie-wound, then paint with Betadine and cover with foam. Education provided: Patient educated on dressing change and turning. Offloading surface/device: Patient is independent Recommended Referrals/Tests: consult for Dr. Duncan wound care for 04/19/20. Discharge Recommendations for dressings: continue current treatment at this time. No other wounds noted. Dressing change instructions left in room. Will follow patient regarding wound care.
[2020-04-18] MEDS: rOPINIRole 1 MG TABLET. PO SCH (20:52)
[2020-04-18] MEDS: LACTOBACILLUS RHAMNOSUS GG 1 CAPSULE. PO SCH (20:53)
[2020-04-18] MEDS: PRAZOSIN 1 MG CAPSULE. PO SCH (20:55)
[2020-04-19 03:00] VITALS: BP_SYST 120; BP_SYST 145; BP_DIAS 77; BP_DIAS 81
[2020-04-19 06:09] LABS: BASO # 0.1 x10^3/uL (0.0-0.2); BASO % 1 % (0-3); EOS # 0.3 x10^3/uL (0.0-0.7); EOS % 5 % (0-3); LYMPH # 0.6 x10^3/uL (1.0-4.8); LYMPH % 10 % (24-48); MEAN CORPUSCULAR HEMOGLOBIN 28 pg (25-35); MEAN CORPUSCULAR HGB CONC 32 g/dL (31-37); MEAN CORPUSCULAR VOLUME 86 fL (79-100); MONO # 0.5 x10^3/uL (0.0-1.1); MONO % 9 % (0-9); NEUT # 4.7 x10^3/uL (1.8-7.7); NEUT % 75 % (31-73); PLATELET COUNT 135 x10^3/uL (140-400); RED BLOOD COUNT 3.26 x10^6/uL (4.30-5.70); WHITE BLOOD COUNT 6.2 x10^3/uL (4.0-11.0)
[2020-04-19 06:25] LABS: CREATININE 5.7 mg/dL (0.7-1.3); GFR 10.8; POTASSIUM 4.5 mmol/L (3.5-5.1)
[2020-04-19 07:00] VITALS: BP 141/87
[2020-04-19] MEDS: INSULIN LISPRO 300 UNITS/3 ML VIAL. SQ SCH ×3 (08:00→17:00)
[2020-04-19] MEDS: FOLIC/VIT B COMP W-C (RENAL) TABLET. PO SCH (08:07)
[2020-04-19] MEDS: SEVELAMER CARBONATE 800 MG TABLET. PO SCH ×3 (08:07→17:00)
[2020-04-19] MEDS: LACTOBACILLUS RHAMNOSUS GG 1 CAPSULE. PO SCH (08:07)
[2020-04-19] MEDS: DOXYCYCLINE HYCLATE 100 MG TABLET PO SCH (08:08)
[2020-04-19] MEDS: hydrOXYzine 25 MG TABLET PO SCH ×2 (08:08→14:43)
[2020-04-19] MEDS: LABETALOL HCL 200 MG TABLET PO SCH (08:08)
[2020-04-19] MEDS: PARoxetine 20 MG TABLET PO SCH (08:08)
[2020-04-19] MEDS: HEPARIN for SUB-Q USE 5,000 UNIT/ML VIAL. SQ SCH (08:09)
[2020-04-19] MEDS: amLODIPine BESYLATE 10 MG TABLET PO SCH (08:09)
[2020-04-19 11:00] VITALS: BP 149/81
--- NOTE | 2020-04-19 11:08 | PDOC ---
Renal-Progress Notes Subjective Notes Notes NO NEW COMPLAINTS History of Present Illness Hx of present illness STABLE Vitals Vitals Vital Signs Date Time Temp Pulse Resp B/P (MAP) Pulse Ox O2 Delivery O2 Flow Rate FiO2 04/19/20 11:00 98.1 68 18 149/81 (103) 99 Room Air 98.1 04/18/20 12:01 3.0 Weight Weight [ ] I.O. Intake and Output Intake and Output 04/19/20 07:00 Intake Total 1190 ml Balance 1190 ml Intake Oral 1190 ml # Voids 4 Labs Labs Laboratory Tests Test 04/18/20 12:37 04/19/20 04:05 Sodium Level 139 mmol/L (136-145) 139 mmol/L (136-145) Potassium Level 4.9 mmol/L (3.5-5.1) 4.5 mmol/L (3.5-5.1) Chloride Level 98 mmol/L (98-107) 98 mmol/L (98-107) Carbon Dioxide Level 33 mmol/L (21-32) 32 mmol/L (21-32) Anion Gap 8 (6-14) 9 (6-14) Blood Urea Nitrogen 43 mg/dL (8-26) 21 mg/dL (8-26) Creatinine 9.0 mg/dL (0.7-1.3) 5.7 mg/dL (0.7-1.3) Estimated GFR (Cockcroft-Gault) 6.4 10.8 Glucose Level 111 mg/dL (70-99) 79 mg/dL (70-99) Calcium Level 9.0 mg/dL (8.5-10.1) 9.0 mg/dL (8.5-10.1) White Blood Count 6.2 x10^3/uL (4.0-11.0) Red Blood Count 3.26 x10^6/uL (4.30-5.70) Hemoglobin 9.0 g/dL (13.0-17.5) Hematocrit 28.0 % (39.0-53.0) Mean Corpuscular Volume 86 fL (79-100) Mean Corpuscular Hemoglobin 28 pg (25-35) Mean Corpuscular Hemoglobin Concent 32 g/dL (31-37) Red Cell Distribution Width 20.0 % (11.5-14.5) Platelet Count 135 x10^3/uL (140-400) Neutrophils (%) (Auto) 75 % (31-73) Lymphocytes (%) (Auto) 10 % (24-48) Monocytes (%) (Auto) 9 % (0-9) Eosinophils (%) (Auto) 5 % (0-3) Basophils (%) (Auto) 1 % (0-3) Neutrophils # (Auto) 4.7 x10^3/uL (1.8-7.7) Lymphocytes # (Auto) 0.6 x10^3/uL (1.0-4.8) Monocytes # (Auto) 0.5 x10^3/uL (0.0-1.1) Eosinophils # (Auto) 0.3 x10^3/uL (0.0-0.7) Basophils # (Auto) 0.1 x10^3/uL (0.0-0.2) Review of Systems Constitutional: yes: weakness, alert, oriented Ears/Nose/Throat: Yes: no symptom reported Eyes: Yes: no symptom reported Pulmonary: Yes dyspnea Cardiovascular: Yes no symptom reported Gastrointestional: Yes: no symptom reported Genitourinary: Yes: no symptom reported Musculoskeletal: Yes: no symptom reported Skin: Yes no symptom reported Psychiatric/Neurological: Yes: no symptom reported Endocrine: Yes: no symptom reported Physical Exam General Appearance: no apparent distress Skin: warm Respiratory: bilateral CTA Heart: S1S2 Abdomen: soft, bowel sounds present Genitourinary: bladder flat Extremities: pulses present Neurology: alert, oriented Assessment Assessment IMP ESRD CHF-DIASTOLIC NON COMPLIANCE ACUTE RESP FALURE ANEMIA SUBSTANCE ABUSE LLE CELLULITIS PLAN HD TOMORROW CONT VICTOR MANUEL ANTIBIOTICS NEEDED ENC COMPLIANCE ROZ IZAGUIRRE MD Apr 19, 2020 11:08
--- NOTE | 2020-04-19 11:25 | PDOC ---
[employer] [facility] PROGRESS NOTE Date of Service DOS: DATE: 04/19/20 TIME: 11:22 Chief Complaint Chief Complaint Acute volume overload due to missed dialysis Acute respiratory distress due to volume overload Chronic anemia due to ESRD Acute electrolyte abnormalitieshyperkalemia, uremia Concern for polysubstance abuse Bilateral lower extremity edema complicated by left lower extremity cellulitis Admit to medicine for further management of electrolyte abnormalities and urgent dialysis Nephrology consult Continue with hemodialysis Consider Kayexalate Pending UDS Will start on doxycycline 100 mg twice daily for left lower extremity cellulitis Wound care consult for blister in the left lower extremity Consider ID consult if patient is not improving Heparin for DVT prophylaxis Protonix GI prophylaxis ADA diet Full code Discussed with RN and SW Disposition pending nephrology evaluation and dialysis Surrogate decision maker is undesignated at this time History of Present Illness History of Present Illness 44-year-old male with a history of ESRD secondary to hypertension who presents with chief complaint of missed dialysis. He states he has not received dialysis treatment in 1 week. He receives dialysis treatments typically on Mondays, Wednesdays, and Fridays. He states he has not gone to dialysis treatment because he has had a lack of transportation. He does note some shortness of breath that is worse with laying flat. Denies chest pain. Does endorse orthopnea. Endorses bendopnea. Denies abdominal pain. Denies nausea or vomiting. Notes his legs seem a little bit more red and tender bilaterally. Denies falls or trauma. Does endorse tobacco abuse. Is unsure of who his event planning intern is. States he presented a because of shortness of breath became worse. No other complaints. 04/17/2020 No acute events overnight. Patient tolerated dialysis well with 4.5 L removed. Nurse reported that patient is producing little urine and is difficult to obtain a urine drug screen at this time. No Lasix ordered at this time. Nurse also reported left lower extremity has some increasing redness and possible concerning area of a wound on the posterior calf. The site was examined by me and there was no acute need for IV antibiotics or wound care. However wound care consult was ordered mainly for blistering of the ankle portion and doxycycline as ordered for concerning developing cellulitis. Patient's chart, labs, images were reviewed and discussed with RN 04/18/2020 Patient evaluated bedside. No acute events overnight. He is to have repeat dialysis today. He was treated with wound care for his cellulitis. Discussed with RN, may discharge today or tomorrow. 04/19/2020 Patient evaluated bedside. States he feels well, still complains of some chronic leg swelling over the past 6 months. Reiterated to patient that he is a standing order for transportation to dialysis, and he needs to establish primary care. He feels comfortable discharging home. Vitals/I&O Vitals/I&O: Vital Signs Date Time Temp Pulse Resp B/P (MAP) Pulse Ox O2 Delivery O2 Flow Rate FiO2 04/19/20 11:00 98.1 68 18 149/81 (103) 99 Room Air 98.1 04/18/20 12:01 3.0 I & O 04/18/20 04/18/20 04/19/20 15:00 23:00 07:00 Intake Total 360 ml 350 ml 480 ml Balance 360 ml 350 ml 480 ml Physical Exam Physical Exam: GEN: No apparent distress. Alert and oriented HEENT: Normal cephalic, atraumatic, external auditory canals are patent NECK: Supple, no JVD, no thyromegaly was noted LUNGS: Bilateral clear HEART: RRR, S1, S2 present. Peripheral pulses intact, no obvious murmurs noted ABDOMEN: Soft, nontender. Positive bowel sounds, no organomegaly, normal bowel sounds EXTREMITIES: Bilateral lower extremity +2 pitting edema. Left lower extremity more erythematous than the right. Some blistering in the anterior ankle portion. Painted toenails. Extremely soiled fingernails of the right hand Lungs: Clear Labs Labs: Laboratory Tests Test 04/18/20 12:37 04/19/20 04:05 Sodium Level 139 mmol/L (136-145) 139 mmol/L (136-145) Potassium Level 4.9 mmol/L (3.5-5.1) 4.5 mmol/L (3.5-5.1) Chloride Level 98 mmol/L (98-107) 98 mmol/L (98-107) Carbon Dioxide Level 33 mmol/L (21-32) 32 mmol/L (21-32) Anion Gap 8 (6-14) 9 (6-14) Blood Urea Nitrogen 43 mg/dL (8-26) 21 mg/dL (8-26) Creatinine 9.0 mg/dL (0.7-1.3) 5.7 mg/dL (0.7-1.3) Estimated GFR (Cockcroft-Gault) 6.4 10.8 Glucose Level 111 mg/dL (70-99) 79 mg/dL (70-99) Calcium Level 9.0 mg/dL (8.5-10.1) 9.0 mg/dL (8.5-10.1) White Blood Count 6.2 x10^3/uL (4.0-11.0) Red Blood Count 3.26 x10^6/uL (4.30-5.70) Hemoglobin 9.0 g/dL (13.0-17.5) Hematocrit 28.0 % (39.0-53.0) Mean Corpuscular Volume 86 fL (79-100) Mean Corpuscular Hemoglobin 28 pg (25-35) Mean Corpuscular Hemoglobin Concent 32 g/dL (31-37) Red Cell Distribution Width 20.0 % (11.5-14.5) Platelet Count 135 x10^3/uL (140-400) Neutrophils (%) (Auto) 75 % (31-73) Lymphocytes (%) (Auto) 10 % (24-48) Monocytes (%) (Auto) 9 % (0-9) Eosinophils (%) (Auto) 5 % (0-3) Basophils (%) (Auto) 1 % (0-3) Neutrophils # (Auto) 4.7 x10^3/uL (1.8-7.7) Lymphocytes # (Auto) 0.6 x10^3/uL (1.0-4.8) Monocytes # (Auto) 0.5 x10^3/uL (0.0-1.1) Eosinophils # (Auto) 0.3 x10^3/uL (0.0-0.7) Basophils # (Auto) 0.1 x10^3/uL (0.0-0.2) Review of Systems Review of Systems: Denies fever, denies chest pain, denies shortness of breath. Assessment and Plan Assessmemt and Plan Problems Medical Problems: (1) ESRD (end stage renal disease) Status: Acute (2) HTN (hypertension) Status: Acute (3) Hyperkalemia Status: Acute (4) Pulmonary edema Status: Acute (5) Tobacco abuse Status: Acute Comment Review of Relevant I have reviewed the following items [place] (where applicable) has been applied. Medications: Current Medications Medications (Trade) Dose Ordered Sig/Michel Route PRN Reason Start Time Stop Time Status Last Admin Dose Admin Trazodone HCl (Desyrel) 100 mg QHS PO 04/18/20 21:00 04/18/20 20:54 Lactobacillus Rhamnosus (Culturelle) 1 cap BID PO 04/18/20 21:00 04/19/20 08:07 Justifications for Admission Other Justification PHYLLIS MORALES MD Apr 19, 2020 11:25
--- NOTE | 2020-04-19 11:32 | PDOC3 ---
Discharge Summary Visit Information Date of Admission: Apr 15, 2020 Date of Discharge: Apr 19, 2020 Final Diagnosis Problems Medical Problems: (1) ESRD (end stage renal disease) Status: Acute (2) HTN (hypertension) Status: Acute (3) Hyperkalemia Status: Acute (4) Pulmonary edema Status: Acute (5) Tobacco abuse Status: Acute Brief Hospital Course Allergies Allergies Coded Allergies Type Severity Reaction Last Updated Verified ibuprofen Allergy Intermediate "Hives" 03/25/20 Yes Vital Signs Vital Signs Date Time Temp Pulse Resp B/P (MAP) Pulse Ox O2 Delivery O2 Flow Rate FiO2 04/19/20 11:00 98.1 68 18 149/81 (103) 99 Room Air 98.1 04/18/20 12:01 3.0 Lab Results Laboratory Tests Test 04/17/20 12:36 04/18/20 12:37 04/19/20 04:05 White Blood Count 5.7 x10^3/uL (4.0-11.0) 6.2 x10^3/uL (4.0-11.0) Red Blood Count 3.57 x10^6/uL (4.30-5.70) 3.26 x10^6/uL (4.30-5.70) Hemoglobin 9.9 g/dL (13.0-17.5) 9.0 g/dL (13.0-17.5) Hematocrit 30.7 % (39.0-53.0) 28.0 % (39.0-53.0) Mean Corpuscular Volume 86 fL (79-100) 86 fL (79-100) Mean Corpuscular Hemoglobin 28 pg (25-35) 28 pg (25-35) Mean Corpuscular Hemoglobin Concent 32 g/dL (31-37) 32 g/dL (31-37) Red Cell Distribution Width 20.7 % (11.5-14.5) 20.0 % (11.5-14.5) Platelet Count 148 x10^3/uL (140-400) 135 x10^3/uL (140-400) Neutrophils (%) (Auto) 79 % (31-73) 75 % (31-73) Lymphocytes (%) (Auto) 6 % (24-48) 10 % (24-48) Monocytes (%) (Auto) 10 % (0-9) 9 % (0-9) Eosinophils (%) (Auto) 3 % (0-3) 5 % (0-3) Basophils (%) (Auto) 1 % (0-3) 1 % (0-3) Neutrophils # (Auto) 4.5 x10^3/uL (1.8-7.7) 4.7 x10^3/uL (1.8-7.7) Lymphocytes # (Auto) 0.3 x10^3/uL (1.0-4.8) 0.6 x10^3/uL (1.0-4.8) Monocytes # (Auto) 0.6 x10^3/uL (0.0-1.1) 0.5 x10^3/uL (0.0-1.1) Eosinophils # (Auto) 0.2 x10^3/uL (0.0-0.7) 0.3 x10^3/uL (0.0-0.7) Basophils # (Auto) 0.1 x10^3/uL (0.0-0.2) 0.1 x10^3/uL (0.0-0.2) Segmented Neutrophils % 81 % (35-66) Band Neutrophils % 1 % (0-9) Lymphocytes % 3 % (24-48) Monocytes % 10 % (0-10) Eosinophils % 3 % (0-5) Basophils % 2 % (0-3) Platelet Estimate Adequate (ADEQUATE) Anisocytosis Mod Sodium Level 139 mmol/L (136-145) 139 mmol/L (136-145) 139 mmol/L (136-145) Potassium Level 4.5 mmol/L (3.5-5.1) 4.9 mmol/L (3.5-5.1) 4.5 mmol/L (3.5-5.1) Chloride Level 97 mmol/L (98-107) 98 mmol/L (98-107) 98 mmol/L (98-107) Carbon Dioxide Level 32 mmol/L (21-32) 33 mmol/L (21-32) 32 mmol/L (21-32) Anion Gap 10 (6-14) 8 (6-14) 9 (6-14) Blood Urea Nitrogen 32 mg/dL (8-26) 43 mg/dL (8-26) 21 mg/dL (8-26) Creatinine 7.6 mg/dL (0.7-1.3) 9.0 mg/dL (0.7-1.3) 5.7 mg/dL (0.7-1.3) Estimated GFR (Cockcroft-Gault) 7.8 6.4 10.8 Glucose Level 130 mg/dL (70-99) 111 mg/dL (70-99) 79 mg/dL (70-99) Calcium Level 8.9 mg/dL (8.5-10.1) 9.0 mg/dL (8.5-10.1) 9.0 mg/dL (8.5-10.1) Phosphorus Level 6.5 mg/dL (2.6-4.7) Magnesium Level 2.3 mg/dL (1.8-2.4) Laboratory Tests Test 04/18/20 12:37 04/19/20 04:05 Sodium Level 139 mmol/L (136-145) 139 mmol/L (136-145) Potassium Level 4.9 mmol/L (3.5-5.1) 4.5 mmol/L (3.5-5.1) Chloride Level 98 mmol/L (98-107) 98 mmol/L (98-107) Carbon Dioxide Level 33 mmol/L (21-32) 32 mmol/L (21-32) Anion Gap 8 (6-14) 9 (6-14) Blood Urea Nitrogen 43 mg/dL (8-26) 21 mg/dL (8-26) Creatinine 9.0 mg/dL (0.7-1.3) 5.7 mg/dL (0.7-1.3) Estimated GFR (Cockcroft-Gault) 6.4 10.8 Glucose Level 111 mg/dL (70-99) 79 mg/dL (70-99) Calcium Level 9.0 mg/dL (8.5-10.1) 9.0 mg/dL (8.5-10.1) White Blood Count 6.2 x10^3/uL (4.0-11.0) Red Blood Count 3.26 x10^6/uL (4.30-5.70) Hemoglobin 9.0 g/dL (13.0-17.5) Hematocrit 28.0 % (39.0-53.0) Mean Corpuscular Volume 86 fL (79-100) Mean Corpuscular Hemoglobin 28 pg (25-35) Mean Corpuscular Hemoglobin Concent 32 g/dL (31-37) Red Cell Distribution Width 20.0 % (11.5-14.5) Platelet Count 135 x10^3/uL (140-400) Neutrophils (%) (Auto) 75 % (31-73) Lymphocytes (%) (Auto) 10 % (24-48) Monocytes (%) (Auto) 9 % (0-9) Eosinophils (%) (Auto) 5 % (0-3) Basophils (%) (Auto) 1 % (0-3) Neutrophils # (Auto) 4.7 x10^3/uL (1.8-7.7) Lymphocytes # (Auto) 0.6 x10^3/uL (1.0-4.8) Monocytes # (Auto) 0.5 x10^3/uL (0.0-1.1) Eosinophils # (Auto) 0.3 x10^3/uL (0.0-0.7) Basophils # (Auto) 0.1 x10^3/uL (0.0-0.2) Brief Hospital Course Mr. Barroso is a 44 old male who presented with acute volume overload due to missed dialysis, respiratory distress due to volume overload, and acute electrolyte abnormality. Consulted social placed to nephrology for urgent hemodialysis. Patient was counseled on adhering to his hemodialysis appointments. He has a standing order for transfer to hemodialysis through his insurance whenever necessary. He was refusing home health and stable for discharge home. Discharge Information Condition at Discharge: Improved Disposition/Orders: D/C to Home Scheduled Amlodipine Besylate (Amlodipine Besylate) 10 Mg Tablet, 10 MG PO DAILY for HTN, (Reported) Entered as Reported by: HE PERRIN on 03/25/20 1102 Last Action: Reviewed on 04/15/202305 by Sharlene MAZARIEGOS/Folic/Zinc/Selenometh/D3/E (Renaplex-D Tablet) 1 Each Tablet, 1 TAB PO DAILY for vitamin, (Reported) Entered as Reported by: Rory Shaffer on 03/24/202109 Last Action: Reviewed on 04/15/202305 by SHARONDA ANDRADE Hydroxyzine Hcl (Hydroxyzine Hcl) 25 Mg Tablet, 1 TAB PO TID for itching, #30 (Reported) Entered as Reported by: HE PERRIN on 03/25/201101 Last Action: Reviewed on 04/15/202305 by SHARONDA ANDRADE Labetalol Hcl (Labetalol Hcl) 200 Mg Tablet, 200 MG PO BID for HTN for 90 Days, #180 Ref 3 Prescribed by: JABIER ALLEN MD on 03/26/20 1344 Last Action: Reviewed on 04/15/202305 by SHARONDA ANDRADE Lurasidone Hcl (Latuda) 120 Mg Tablet, 120 MG PO DAILY for depression, (Reported) Entered as Reported by: HE PERRIN on 03/25/201101 Last Action: Reviewed on 04/15/202305 by SHARONDA ANDRADE Paroxetine Hcl (Paroxetine Hcl) 20 Mg Tablet, 1 TAB PO DAILY for depression, #30 Ref 5 (Reported) Entered as Reported by: HE PERRIN on 03/25/201101 Last Action: Reviewed on 04/15/202305 by SHARONDA ANDRADE Prazosin Hcl (Prazosin Hcl) 2 Mg Capsule, 1 CAP PO QHS for HTN, #30 (Reported) Entered as Reported by: HE PERRIN on 03/25/201101 Last Action: Reviewed on 04/15/202305 by SHARONDA ANDRADE Ropinirole Hcl (Ropinirole Hcl) 0.5 Mg Tablet, 1 TAB PO QHS for RLS, (Reported) Entered as Reported by: Rory Shaffer on 03/24/202109 Last Action: Reviewed on 04/15/202305 by SHARONDA ANDRADE Sevelamer Hcl (Renagel) 800 Mg Tablet, 4 TAB PO TIDAC for esrd, (Reported) Entered as Reported by: Rory Shaffer on 03/24/202109 Last Action: Reviewed on 04/15/202305 by SHARONDA ANDRADE Trazodone Hcl (Trazodone Hcl) 100 Mg Tablet, 1 TAB PO QHS for insomnia, #30 Ref 1 (Reported) Entered as Reported by: HE PERRIN on 03/25/201101 Last Action: Edited on 04/15/202305 by SHARONDA ANDRADE Discontinued Medications Labetalol Hcl (Labetalol Hcl) 200 Mg Tablet, 1 TAB PO BID for HTN, #60 Ref 5 (Reported) Entered as Reported by: BENJAMIN TIWARI RN on 03/26/20 1325 Last Action: Discontinued on 04/15/202305 by SHARONDA ANDRADE Lurasidone Hcl (Latuda) 120 Mg Tablet, 1 TAB PO QHS for dep for 30 Days, #30 Ref 0 (Reported) Entered as Reported by: SHARONDA ANDRADE on 04/15/202306 Last Action: New Order on 04/15/202306 by SHARONDA ANDRADE Ropinirole Hcl (Ropinirole Hcl) 0.5 Mg Tablet, 0.5 MG PO HS for Restless leg, (Reported) Entered as Reported by: HE PERRIN on 03/25/20 1102 Last Action: Discontinued on 04/15/202305 by SHARONDA ANDRADE Justicifation of Admission Dx: Justifications for Admission: Justification of Admission Dx: Yes Chronic Renal Failure: Electrolyte Abnormality PHYLLIS MORALES MD Apr 19, 2020 11:32
--- NOTE | 2020-04-19 13:15 | NUR ---
Wound Care: Patient has an LLE ASIA of 1.23.
[2020-04-19 15:00] VITALS: BP 150/80
[2020-04-19] MEDS: MORPHINE SULFATE 2 MG/ML VIAL. IV PRN (15:12)
--- NOTE | 2020-04-19 15:26 | NUR ---
Wound/Ostomy Care Wound Type/Assessment: Patient seen per wound care again today with our wound care physician Dr. Duncan. 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 Duncan agreeable. Wound cleansed and assessed. Orders for patient to continue with discharge and follow up with us in the wound clinic. Treatment Recommendations/Plan: skin prep to nikkie-wound, then paint with Betadine and cover with foam. Dressing applied. Education provided: Patient educated on dressing change and turning and follow up appointment for wound care after discharge. Spoke with RN whom states patient is very noncompliant and typically does not appear for scheduled appointments. Dr. Duncan educated patient on calciphylaxis and treatment. Informed RN to make sure nephrology was aware of this wound. Offloading surface/device: Patient is independent Recommended Referrals/Tests: Follow up in the wound clinic on Saturday04/26/20 at 9:15 Discharge Recommendations for dressings: continue current treatment at this time. No other wounds noted. Dressing change instructions left in room. Will follow patient regarding wound care and at the clinic after discharge. Bed lowered and call light in reach.
--- NOTE | 2020-04-19 15:36 | NUR ---
SW following. Spoke with RN and reviewed chart. Pt to discharge home today, self-care. SW was contacted by Andree with [facility] who stated pt had been on service prior to this admission, but that they will not accept pt back per hx of noncompliance. SW met with pt who stated he does not want HH at discharge and does not need it. Pt stated he will follow up with out-patient wound care. RN notified. Discharge orders phoned and faxed to [facility]. No further SW needs at this time.
--- NOTE | 2020-04-19 17:35 | NUR ---
Discharge Note: PT DISCHARGED HOME WITH SELF CARE. PT LEFT FACILITY VIA CAB PASS AT 1710. PT STABLE AND ALERT UPON DISCHARGE. PT PIV REMOVED FROM R WRIST WITHOUT COMPLICATIONS, BANDAGE APPLIED. PT EDUCATED ABOUT DISCHARGE INSTRUCTIONS, DISCHARGE MEDICATIONS, AND FOLLOW-UP CARE. PT EDUCATED ABOUT THE IMPORTANCE OF COMPLIANCE WITH MEDICATIONS, DIALYSIS, AND FOLLOWING UP WITH OUR WOUND CARE TEAM AND KEEPING THE APPOINTMENT THAT WAS SCHEDULED FOR 04/26/20. PT VOICED THAT HE WOULD COMPLY WITH THE DOCTORS ORDERS AFTER EXPLAINING THE RISK ON NON-COMPLIANCE. ALL QUESTIONS ANSWERED AND NO OTHER CONCERNS VOICED AT THIS TIME. PT LEFT WITH ALL PERSONAL BELONGINGS UPON DISCHARGE. SALLY ROPER Discharge instructions and discharge home medications reviewed with Patient and a copy given. All questions have been answered and understanding verbalized.
== END 2020-04-19 17:10 | disposition home or self-care (01) | DRG 640 ==
LOC: ER 16:19 → ED HOLD 19:20 → 5 NORTH 21:18
PROVIDERS: ADMIT Internal Medicine; ATTEND Internal Medicine
PROC: 5A1D70Z Performance of Urinary Filtration, Intermittent, Less than 6 Hours Per Day (ICD-10-PCS; principal; 2020-04-15)
PROC: 5A1D70Z Performance of Urinary Filtration, Intermittent, Less than 6 Hours Per Day (ICD-10-PCS; 2020-04-16)
PROC: 5A1D70Z Performance of Urinary Filtration, Intermittent, Less than 6 Hours Per Day (ICD-10-PCS; 2020-04-18)
DX: E87.5 Hyperkalemia (principal); N18.6 End stage renal disease; N17.0 Acute kidney failure with tubular necrosis; J96.00 Acute respiratory failure, unspecified whether with hypoxia or hypercapnia; I13.2 Hypertensive heart and chronic kidney disease with heart failure and with stage 5 chronic kidney disease, or end stage renal disease; L03.116 Cellulitis of left lower limb; I50.32 Chronic diastolic (congestive) heart failure; D63.1 Anemia in chronic kidney disease; F17.200 Nicotine dependence, unspecified, uncomplicated; F41.9 Anxiety disorder, unspecified; F31.9 Bipolar disorder, unspecified; J44.9 Chronic obstructive pulmonary disease, unspecified; Z79.899 Other long term (current) drug therapy; Z82.49 Family history of ischemic heart disease and other diseases of the circulatory system; Z91.19 Patient's noncompliance with other medical treatment and regimen; Z99.2 Dependence on renal dialysis; Z88.8 Allergy status to other drugs, medicaments and biological substances
CPT/HCPCS: 36415; 71045; 80048; 80053; 83735; 84100; 85007; 85025; 93005; 96365; 96375; 99291; J0610; J0882; J1815; J2270; J2405; J3490; G0378